=== PATIENT | male | born 1965 | race Caucasian/White ===

== ENCOUNTER 2017-12-15 14:08 | Emergency (ER) | payer OTHER, MEDICAID, SELFPAY ==
[2017-12-15 14:10] VITALS: BP 143/80; PULSE 94; RESP 16; TEMP 36.7; O2SAT 96; BMI 25.1
[2017-12-15 14:26] LABS: Bedside Glucose > 500 mg/dL (70-110)
[2017-12-15 16:28] VITALS: BP 140/77; PULSE 98; RESP 18; O2SAT 97
--- NOTE | 2017-12-15 16:33 | EKG12_ITS ---
Test Reason : WEAKNESS Blood Pressure : / mmHG Vent. Rate : 088 BPM Atrial Rate : 088 BPM P-R Int : 136 ms QRS Dur : 076 ms QT Int : 390 ms P-R-T Axes : 040 -13 025 degrees QTc Int : 471 ms Normal sinus rhythm Nonspecific T wave abnormality Prolonged QT Abnormal ECG Confirmed by MARSHA MORTENSEN, KULWINDER ([id number]), medical transcription editor CYNTHIA FOY ([id number]) on 12/17/2017 2:09:38 PM Referred By: Parish Marinelli Confirmed By:KULWINDER LARSON MD
[2017-12-15] MEDS: 0.9% Normal Saline 1,000 ML 999 ML IV (16:56)
[2017-12-15 17:08] LABS: Absolute Lymphocyte Count 1.56 X10^3/ul (0.83-4.51); Absolute Neutrophil Count 8.8 X10^3/uL (2.0-7.7); Basophil# 0.02 X10^3/uL; Basophil% 0.2 % (0-1); Hematocrit 45.9 % (40-54); Hemoglobin 16.2 g/dl (13.0-16.5); Lymphocyte # 1.56 X10^3/ul (4.0); Lymphocyte % 14.8 % (19-41); Mean Corp Hgb Conc 35.3 g/gl (32-36); Mean Corpuscular Hgb 31.3 pg (27.0-32.0); Mean Corpuscular Volume 88.6 fL (80-94); Mean Platelet Vol. 10.9 fl (6.2-12.0); Monocyte# 0.19 X10^3/uL; Monocyte% 1.8 % (0-10); Neutrophil # 8.78 X10^3/uL (2.7-7.7); Neutrophil % 83.1 % (47-70); Platelet Count 325 K/mm3 (150-450); RBC Distribution Width CV 12.5 % (11.6-14.6); RBC Distribution Width SD 39.8 fl (35.1-43.9); Red Blood Count 5.18 M/mm3 (4.6-6.2); White Blood Count 10.6 K/mm3 (4.4-11.0)
[2017-12-15 17:11] LABS: POSITIVE COUNT NO; POSITIVE DIFFERENTIAL NO; POSITIVE MORPHOLOGY NO
[2017-12-15 17:28] LABS: AST(SGOT) 21 U/L (15-37); Alanine Aminotransfer ALT/SGPT 22 U/L (16-61); Albumin, Serum 4.4 g/dL (3.2-5.0); Alkaline Phosphatase 118 U/L (45-117); Anion Gap 19 (5-15); BUN 37 mg/dL (7-18); Calcium,Total 9.3 mg/dL (8.5-10.1); Chloride 97 mmol/L (98-107); Creatinine, Serum 1.95 mg/dL (0.70-1.30); EST Glomerular Filtration Rate 38 mL/min (>60); Est Glom Filt Rate - Afr Amer 46 mL/min (>60); Estimated Creatinine Clearance 46.66 ml/min; Globulin 4.5 g/dL (2.2-4.2); Glucose 413 mg/dL (74-106); Potassium 4.3 mmol/L (3.5-5.1); Protein, Total 8.9 g/dL (6.4-8.2); Sodium Level 131 mmol/L (136-145)
--- NOTE | 2017-12-15 17:58 | ED.VISSUMM ---
- ER Visit Summary Date of Service: 12/15/17 Chief Complaint: Weakness, nausea vomiting History of Present Illness: The patient is a 51 M who feels weak and has had nausea and vomiting. He has not taken his diabetes medicines due to the nausea and vomiting. He does like he has dry mouth. He feels like his joints feel numb. He denies any pain. He was bit by a bug in the [facility] earlier this week. He did topical medicines for it and the spot went away. Physical Examination: Vital signs reviewed. HEENT exam unremarkable. Heart is regular rate and rhythm without murmurs. Lungs are clear to auscultation. Abdomen is soft and nontender. Extremities reveal no edema. Skin exam normal. Neurologic exam normal. Test Results: Blood glucose 413, sodium 131, creatinine 1.95 Emergency Department Course and Treatment: Patient was hydrated with saline. He was given subcutaneous insulin. He appears and feels better. I doubt this has anything to do with the bug bite. Is likely because his blood sugar has been high. He will check his blood sugars at home and use his home insulin and medications and will follow up with his PCP Treatment Plan: [] Disposition: Discharge Impression: Hyperglycemia This note was generated with [employer] dictation software. It may contain incorrect words, spelling, and punctuation that were not noted in review of the chart prior to signing ED Disposition - Plan for ED Patient: Chief Complaint: Weakness Referrals: Johnathan Wheeler III, MD [Primary Care Provider] -
--- NOTE | 2017-12-15 18:00 | ED.DEP ---
ED Disposition - Plan for ED Patient: Disposition: Home or Assisted Living Chief Complaint: Weakness Instructions: ED Weakness UKO, ED Hyperglycemia Diabetic Referrals: Johnathan Wheeler III, MD [Primary Care Provider] -
[2017-12-15 18:01] VITALS: BP 138/76; PULSE 79; RESP 18; O2SAT 97
== END 2017-12-15 18:30 | disposition home or self-care (01) ==
PROVIDERS: Emergency Provider Emergency Medicine; Family Provider Family Medicine; PCP Family Medicine
DX: E10.65 Type 1 diabetes mellitus with hyperglycemia (principal); Z79.4 Long term (current) use of insulin; Z79.82 Long term (current) use of aspirin; Z79.899 Other long term (current) drug therapy
CPT/HCPCS: 80053; 82962; 85025; 93005; 96360; 96361; 99284; J7030; A4216

== ENCOUNTER 2018-03-01 09:33 | Inpatient (IN) | payer MEDICAID, SELFPAY ==
[2018-03-01] VITALS (21 sets, daily range): BP systolic 111–155; BP diastolic 54–87; PULSE 87–128; RESP 16–28; TEMP 36.6–38.1; O2SAT 96–100; BMI 23.7; BMI 22.4; BMI 22.5
[2018-03-01 09:46] LABS: Bedside Glucose > 500 mg/dL (70-110)
--- NOTE | 2018-03-01 09:47 | ED.VISSUMM ---
- ER Visit Summary Date of Service: 03/01/18 Chief Complaint: Nausea and vomiting History of Present Illness: The patient is a 52 M history of insulin-dependent type 1 diabetes and hypothyroidism. Patient's never had any abdominal surgeries. States he had nausea and vomiting since 11 PM last night. Denies any significant abdominal pain. Denies any diarrhea or constipation. No melena. No dysuria. No fever. States he just cannot stop vomiting. Has been trying to drink enough water but does not think he can keep up and thinks he is dehydrated. Physical Examination: Middle-aged male. Vital signs stable his initial blood pressure is 141/87 his heart rate is 123. Clinically he does look dehydrated. H EENT exam dry mucous membranes. Neck nontender. Lungs clear to auscultation bilaterally. Heart regular rhythm rate about 120s no murmur. Chest wall nontender. Abdomen soft. Nondistended. Normal bowel sounds. No peritoneal signs. No hernias or masses. No signs of obstruction. Both the right upper and right lower quadrants are unremarkable. Patient is moving all 4 extremities. They are neurovascularly intact. Calves are nontender without edema or cords. Neurologically is awake and alert with no focal motor deficits. Test Results: 20,000 white count. Hemoglobin of 15. No bands. Serum ketones are large. Chemistry panel shows a sodium 129. Potassium of 5.9. Anion gap of 31. CO2 is 7. Glucose a 19. BUN of 30 and creatinine 1.76. All consistent with his DKA. Emergency Department Course and Treatment: Patient clinically looks dehydrated from nausea and vomiting. He will be given 2 L normal saline. Screening labs will be obtained. Also be treated with IV Zofran for his nausea. Repeat exam the patient is doing better at 10:50 AM. He is in diabetic ketoacidosis and was started on IV insulin drip weight-based. Given additional Zofran for his nausea. He will eventually need to be admitted. Hospitalist on page for admission. Treatment Plan: IV fluids. Insulin drip. ICU admission. Disposition: Admission Impression: Acute nausea and vomiting Acute diabetic ketoacidosis Acute dehydration History of insulin-dependent diabetes This note was generated with [employer] software. It may contain incorrect words, spelling, and punctuation that were not noted in review of the chart prior to signing ED Disposition - Plan for ED Patient: Chief Complaint: Nausea/Vomiting Referrals: Johnathan Wheeler III, MD [Primary Care Provider] -
[2018-03-01] MEDS: Ondansetron 4 MG/2 ML Vial IV ×3 (09:59→20:42)
[2018-03-01] MEDS: 0.9% Normal Saline 1,000 ML 1000 ML IV ×2 (09:59→10:01)
[2018-03-01 10:28] LABS: Absolute Lymphocyte Count 1.41 X10^3/ul (0.83-4.51); Absolute Neutrophil Count 18.6 X10^3/uL (2.0-7.7); Basophil# 0.03 X10^3/uL; Basophil% 0.1 % (0-1); Hematocrit 48.5 % (40-54); Hemoglobin 15.5 g/dl (13.0-16.5); Lymphocyte # 1.41 X10^3/ul (4.0); Lymphocyte % 6.8 % (19-41); Mean Corpuscular Hgb 30.9 pg (27.0-32.0); Mean Corpuscular Volume 96.8 fL (80-94); Mean Platelet Vol. 10.8 fl (6.2-12.0); Monocyte# 0.57 X10^3/uL; Monocyte% 2.8 % (0-10); Neutrophil # 18.59 X10^3/uL (2.7-7.7); Neutrophil % 90.1 % (47-70); Platelet Count 403 K/mm3 (150-450); RBC Distribution Width CV 12.7 % (11.6-14.6); RBC Distribution Width SD 44.3 fl (35.1-43.9); Red Blood Count 5.01 M/mm3 (4.6-6.2)
[2018-03-01 10:29] LABS: POSITIVE COUNT NO; POSITIVE DIFFERENTIAL NO; POSITIVE MORPHOLOGY NO; White Blood Count 20.7 K/mm3 (4.4-11.0)
[2018-03-01 11:09] LABS: Anion Gap 31 (5-15); BUN 30 mg/dL (7-18); Calcium,Total 9.2 mg/dL (8.5-10.1); Chloride 91 mmol/L (98-107); Creatinine, Serum 1.76 mg/dL (0.70-1.30); EST Glomerular Filtration Rate 43 mL/min (>60); Est Glom Filt Rate - Afr Amer 52 mL/min (>60); Glucose 819 mg/dL (74-106); Potassium 5.9 mmol/L (3.5-5.1); Sodium Level 129 mmol/L (136-145)
--- NOTE | 2018-03-01 11:56 | NURSING ---
Called research dairy farm supervisor for midline placement. States nurse will be at [facility] between 2-3pm.
[2018-03-01 12:20] LABS: Bedside Glucose > 500 mg/dL (70-110)
[2018-03-01 13:29] LABS: Glucose 665 mg/dL (74-106)
--- NOTE | 2018-03-01 13:30 | NURSING ---
Titration based on BMP results. Glucometer unable to give accurate reading at this time.
--- NOTE | 2018-03-01 13:32 | HP.PCM_ITS ---
Problem List (1) Type 1 diabetes mellitus Status: Chronic (2) DKA (diabetic ketoacidoses) Status: Acute (3) Hypothyroidism Status: Chronic History of Present Illness Date of Admission: 03/01/18 Chief Complaint: Nausea, vomiting. The patient is a 52 year old M who presents the emergency room with severe nausea and vomiting which began last night around 11 PM. Patient reports epi sodes of vomiting every half hour. Complains of dry mouth and fatigue. Denies abdominal pain. No diarrhea. Denies exposure to ill persons. Denies fever, chills. Patient states his has stage IV cancer and he has been taking care of her. States he has not been taking care of himself well or checking blood sugars like he is supposed to. Patient states he has an upcoming appointment with endocrinology, FRANCOIS silverman 03/12/18. His past medical history includes type 1 diabetes mellitus, hypothyroidism. Past Medical History Past Medical History (Chronic Problems): Chronic Problems (Last Reviewed 01/15/18 @ 15:27 by Rosemarie Farmer) Type 1 diabetes mellitus (Chronic) Hypothyroidism (Chronic) Medical History: Medical History (Last Reviewed 01/15/18 @ 15:27 by Rosemarie Farmer) Diabetes E11.9 Allergies No Known Allergies Allergy (Verified 03/01/18 09:35) Home Medications: Ambulatory Orders Medication Instructions Recorded Aspirin [Aspirin, Baby] 81 mg PO DAILY@0800 08/22/14 Insulin Glargine [Lantus SoloStar 56 units SC QHS 08/22/14 Pen] Insulin Lispro [Humalog] 0 - 100 unit SQ TID 08/22/14 Levothyroxine [Synthroid] 137 mcg PO DAILY 08/22/14 Surgical History: - - Right lithotripsy secondary to right ureteral calculi with obstruction, leg fracture/repair. Psychiatric History: No pertinent psych hx Lives: Spouse/ Significant Other Smoking Status: Never smoker Tobacco Use: Non-smoker Alcohol: Occasional Drugs: None - *Family History Maternal History Items: No pertinent history Paternal History Items: Heart Disease - [place] Review of Systems Constitutional: Denies: Chills, Fever, Weight Change HEENT: Denies: Head Aches, Sinus Congestion, Sinus Drainage Cardiovascular: Denies: Chest Pain, Palpitations Respiratory: Denies: Cough, Shortness of breath at rest, Sputum production Gastrointestinal: Reports: Nausea, Vomiting. Denies: Abdominal Pain, Diarrhea, Hematemesis Genitourinary: Denies: Dysuria Musculoskeletal: Denies: Joint Pain, Joint Tenderness Skin: Denies: Rash, Wounds Neurological: Denies: Numbness, Tingling, Focal weakness Psychiatric: Denies: Anxiety, Depression, Homicidal Ideations, Suicidal Ideations Hematologic/ Lymphatic: Denies: Easy Bruising, Easy Bleeding VTE Information - Inpt Only VTE Present on Admission: No VTE Mechan Device Prophylaxis: SCD's VTE Pharm Prophylaxis ordered?: No Reason prophylaxis not ordered:: Treatment Not Indicated Patient Problems: Active and Suspected Problems (Last Reviewed 01/15/18 @ 15:27 by Rosemarie Farmer) DKA (diabetic ketoacidoses) (Acute) - Physical Exam General: Alert, Oriented x3, Cooperative HEENT: Atraumatic, PERRLA, EOMI, Normocephalic Oral: Dry Mucosa Neck: Supple, No JVD, Negative Carotid Bruits Lungs: Clear to auscultation, Normal air movement Cardiovascular: Regular Rhythm, Normal S1, Normal S2, No murmurs, Tachycardic Abdomen: Bowel Sounds Present, Soft, Non Tender, Non-Distended Extremities: No clubbing, No cyanosis, No edema, Capillary Refill Less than 3 Seconds Skin: No rashes, No breakdown Musculoskeletal: No Tenderness to Palpation of Joints or Extremities Neurological: Cranial nerves II-XII grossly intact, Neuro grossly intact Psych/Mental Status: Normal Affect, Appropriate Vital Signs Temp Pulse Resp BP Pulse Ox 97.8 F 125 H 25 H 144/80 H 100 03/01/18 13:00 03/01/18 13:15 03/01/18 13:15 03/01/18 13:15 03/01/18 13:15 Oxygen Delivery Method Room Air Weight: 161 lb 2.526 oz Body Mass Index (BMI) 22.4 Laboratory Tests Past 24 Hrs 03/01/18 03/01/18 03/01/18 10:16 10:16 10:16 WBC 20.7 H RBC 5.01 Hgb 15.5 Hct 48.5 MCV 96.8 H MCH 30.9 MCHC 32.0 RDW 12.7 RDW Differential 44.3 H Plt Count 403 MPV 10.8 Immature Gran % (Auto) 0.200 Neut % (Auto) 90.1 H Lymph % (Auto) 6.8 L [place] % (Auto) 2.8 Eos % (Auto) 0.0 Baso % (Auto) 0.1 Absolute Neuts (auto) 18.6 H Absolute Lymphs (auto) 1.41 Total Counted Not Reportable Sodium 129 L Potassium 5.9 H Chloride 91 L Carbon Dioxide 7.0 L* Anion Gap 31 H BUN 30 H Creatinine 1.76 H Estim Creat Clear Calc 51.10 Est GFR (MDRD) Af Amer 52 L Est GFR (MDRD) Non-Af 43 L BUN/Creatinine Ratio 17.0 Glucose 819 H* Hemoglobin A1c Calcium 9.2 Acetone Level LARGE H 03/01/18 03/01/18 03/01/18 10:16 12:36 12:36 WBC RBC Hgb Hct MCV MCH MCHC RDW RDW Differential Plt Count MPV Immature Gran % (Auto) Neut % (Auto) Lymph % (Auto) [place] % (Auto) Eos % (Auto) Baso % (Auto) Absolute Neuts (auto) Absolute Lymphs (auto) Total Counted Sodium Pending Potassium Pending Chloride Pending Carbon Dioxide Pending Anion Gap Pending BUN Pending Creatinine Pending Estim Creat Clear Calc Est GFR (MDRD) Af Amer Pending Est GFR (MDRD) Non-Af Pending BUN/Creatinine Ratio Pending Glucose Pending Pending Hemoglobin A1c Pending Calcium Pending Acetone Level POC Glucose 03/01/18 03/01/18 12:16 09:41 POC Glucose > 500 H* > 500 H* Assessment/Plan All Active Problems (Last Reviewed 01/15/18 @ 15:27 by Rosemarie Farmer) DKA (diabetic ketoacidoses) (Acute) Bronchitis (Acute) 1. DKA in the context of type 1 diabetes [id number] and insulin drip per protocol. Blood glucose 819 on admission. Anion gap 31. N.p.o. Check hemoglobin A1c. Serial BMP. IV fluids per protocol. Patient has upcoming appointment to establish with FRANCOIS silverman 03/09/18. 2. Suspected acute gastroenteritis, nausea/vomiting-aggressive IV fluids. Trend BMP. Zofran as needed for nausea. 3. Acute kidney injury secondary to dehydration as a result of #2-IV fluids, trend BMP. 4. Electrolyte disturbance, secondary to #1-patient with hyponatremia/hyperkalemia on admission. Treatment per above. Trend BMP. 5. Hypothyroidism-continue Synthroid regimen. Check TSH. DVT prophylaxis-SCDs. This patient was seen by IRAIS Cam under the supervision of Dr. Nur.
[2018-03-01 13:41] LABS: Anion Gap 29 (5-15); BUN 29 mg/dL (7-18); Calcium,Total 8.7 mg/dL (8.5-10.1); Chloride 98 mmol/L (98-107); Creatinine, Serum 1.53 mg/dL (0.70-1.30); EST Glomerular Filtration Rate 51 mL/min (>60); Est Glom Filt Rate - Afr Amer 61 mL/min (>60); Estimated Creatinine Clearance 57.07 ml/min; Glucose 716 mg/dL (74-106); Potassium 5.3 mmol/L (3.5-5.1); Sodium Level 133 mmol/L (136-145)
[2018-03-01 14:05] LABS: Hemoglobin A1c 10.7 % (4.2-6.3)
[2018-03-01 14:36] LABS: Bedside Glucose > 500 mg/dL (70-110)
[2018-03-01 14:53] LABS: Bacteria 0 SEEN /hpf (None Seen); Mucous, Urine 0 SEEN /hpf (<or=2+); Red Blood Cells-Urine 0 SEEN /hpf (0-5); Squamous Epithelial Cells - UA 0 SEEN /hpf (0-5); White Blood Cells 0 SEEN /hpf (0-5)
[2018-03-01 14:55] LABS: Color, Urine Yellow (Yellow); Glucose, Dipstick 1000 mg/dl (Normal); Ketone-Dipstick 150 mg/dl (Negative); Leukocyte Esterase-Dipstick Negative /ul (Negative); Nitrite-Dipstick Negative (Negative); Occult Blood-Urine 50 /ul (Negative); Protein-Dipstick 30 mg/dl (Negative); Specific Gravity, Urine 1.025 (1.002-1.030); Urine Bilirubin Dipstick Negative (Negative); Urine Clarity Clear (Clear); Urine Urobilinogen Normal (Normal)
[2018-03-01 15:17] LABS: Thyroid Stim Hormone (TSH) 1.43 uIU/mL (0.358-3.74)
[2018-03-01 15:36] LABS: Bedside Glucose 448 mg/dL (70-110)
[2018-03-01 16:36] LABS: Bedside Glucose 439 mg/dL (70-110)
[2018-03-01 17:37] LABS: Anion Gap 22 (5-15); BUN 28 mg/dL (7-18); BUN/Creat Ratio 18.7 RATIO (10-20); Chloride 102 mmol/L (98-107); EST Glomerular Filtration Rate 52 mL/min (>60); Est Glom Filt Rate - Afr Amer 63 mL/min (>60); Estimated Creatinine Clearance 58.21 ml/min; Glucose 372 mg/dL (74-106); Potassium 4.7 mmol/L (3.5-5.1); Sodium Level 134 mmol/L (136-145)
[2018-03-01] MEDS: Levothyroxine 137 MCG Tablet PO (17:37)
[2018-03-01 17:51] LABS: Bedside Glucose 377 mg/dL (70-110)
[2018-03-01] MEDS: 0.9% Normal Saline 1,000 ML 150 ML IV (18:17)
[2018-03-01 18:41] LABS: Bedside Glucose 329 mg/dL (70-110)
[2018-03-01 19:51] LABS: Bedside Glucose 286 mg/dL (70-110)
[2018-03-01] MEDS: 0.9% NaCl Peripheral Flush Adult/Peds IV (20:51)
[2018-03-01 20:56] LABS: Bedside Glucose 290 mg/dL (70-110)
[2018-03-01 21:14] LABS: Anion Gap 13 (5-15); BUN 20 mg/dL (7-18); BUN/Creat Ratio 15.4 RATIO (10-20); Calcium,Total 7.5 mg/dL (8.5-10.1); Chloride 108 mmol/L (98-107); EST Glomerular Filtration Rate 61 mL/min (>60); Est Glom Filt Rate - Afr Amer 74 mL/min (>60); Estimated Creatinine Clearance 67.16 ml/min; Glucose 268 mg/dL (74-106); Potassium 4.4 mmol/L (3.5-5.1); Sodium Level 137 mmol/L (136-145)
[2018-03-01] MEDS: Dext 5%-0.45% NS 1,000 ML 150 ML IV (21:50)
[2018-03-01 21:51] LABS: Bedside Glucose 241 mg/dL (70-110)
[2018-03-01 22:51] LABS: Bedside Glucose 248 mg/dL (70-110)
[2018-03-01 23:56] LABS: Bedside Glucose 226 mg/dL (70-110)
[2018-03-02] VITALS (15 sets, daily range): BP systolic 102–129; BP diastolic 60–81; PULSE 74–88; RESP 14–21; TEMP 36.6–37.4; O2SAT 96–100
[2018-03-02 01:01] LABS: Bedside Glucose 219 mg/dL (70-110)
[2018-03-02 01:19] LABS: Anion Gap 8 (5-15); BUN 17 mg/dL (7-18); BUN/Creat Ratio 14.5 RATIO (10-20); Calcium,Total 7.3 mg/dL (8.5-10.1); Chloride 110 mmol/L (98-107); Creatinine, Serum 1.17 mg/dL (0.70-1.30); EST Glomerular Filtration Rate 69 mL/min (>60); Est Glom Filt Rate - Afr Amer 84 mL/min (>60); Estimated Creatinine Clearance 74.63 ml/min; Glucose 209 mg/dL (74-106); Potassium 3.7 mmol/L (3.5-5.1); Sodium Level 138 mmol/L (136-145)
[2018-03-02] MEDS: 0.9% NaCl Peripheral Flush Adult/Peds IV ×2 (01:39→05:15)
[2018-03-02 03:46] LABS: Bedside Glucose 197 mg/dL (70-110)
[2018-03-02] MEDS: Levothyroxine 137 MCG Tablet PO (05:15)
[2018-03-02 05:59] LABS: Anion Gap 10 (5-15); BUN 15 mg/dL (7-18); BUN/Creat Ratio 14.2 RATIO (10-20); Calcium,Total 7.6 mg/dL (8.5-10.1); Chloride 109 mmol/L (98-107); Creatinine, Serum 1.06 mg/dL (0.70-1.30); EST Glomerular Filtration Rate 77 mL/min (>60); Est Glom Filt Rate - Afr Amer 94 mL/min (>60); Estimated Creatinine Clearance 84.85 ml/min; Glucose 190 mg/dL (74-106); Magnesium 2.1 mg/dL (1.6-2.6); Phosphorus 1.2 mg/dL (2.5-4.9); Potassium 3.6 mmol/L (3.5-5.1); Sodium Level 140 mmol/L (136-145)
[2018-03-02 06:20] LABS: Hematocrit 34.8 % (40-54); Mean Corp Hgb Conc 34.5 g/gl (32-36); Mean Corpuscular Volume 89.9 fL (80-94); Mean Platelet Vol. 10.1 fl (6.2-12.0); Platelet Count 266 K/mm3 (150-450); RBC Distribution Width SD 39.3 fl (35.1-43.9); Red Blood Count 3.87 M/mm3 (4.6-6.2); White Blood Count 11.6 K/mm3 (4.4-11.0)
[2018-03-02 07:01] LABS: Bedside Glucose 187 mg/dL (70-110)
[2018-03-02 07:02] LABS: Scan Indicated on CBC? Y/N NO
[2018-03-02] MEDS: Aspirin 81 MG TAB.CHEW PO (08:41)
[2018-03-02] MEDS: Insulin Lispro 100 UNIT/ML INSULN.PEN SC ×4 (08:43→21:49)
--- NOTE | 2018-03-02 09:01 | PCM.PN.HOSP ---
Patient Problems: Active and Suspected Problems (Last Reviewed 01/15/18 @ 15:27 by Rosemarie Farmer) DKA (diabetic ketoacidoses) (Acute) Subjective: Feeling better but still tired/groggy. No pain, tolerating a diet Vitals/I&O's: Vital Signs Temp Pulse Resp BP Pulse Ox 98.3 F 84 19 H 102/66 98 03/02/18 08:00 03/02/18 08:00 03/02/18 08:00 03/02/18 08:00 03/02/18 08:00 Oxygen Delivery Method Room Air Weight: 166 lb 10.711 oz Body Mass Index (BMI) 22.4 Finger Stick Blood Glucose 665 Intake and Output for Last 24 Hours 02/28/18 03/01/18 03/02/18 23:59 23:59 23:59 Intake Total 2497.3 / 2497.3 799.9 / 799.9 Output Total 1200 / 1200 400 / 400 Balance 1297.3 / 1297.3 399.9 / 399.9 General: Alert, Oriented x3, Cooperative, No apparent distress HEENT: Atraumatic, EOMI, Normocephalic Oral: Moist Mucosa Neck: Supple, No JVD Lungs: Clear to auscultation, Normal air movement, No rhonchi, No wheeze, No rales Cardiovascular: Regular rate, Regular Rhythm, Normal S1, Normal S2, No murmurs Abdomen: Soft, Non Tender, Non-Distended, No Hepato-splenomegaly Extremities: No edema, Capillary Refill Less than 3 Seconds Skin: No rashes, No breakdown Laboratory Results 03/01/18 09:41: POC Glucose > 500 H* 03/01/18 10:16: WBC 20.7 H, RBC 5.01, Hgb 15.5, Hct 48.5, MCV 96.8 H, MCH 30.9, MCHC 32.0, RDW 12.7, RDW Differential 44.3 H, Plt Count 403, MPV 10.8, Immature Gran % (Auto) 0.200, Neut % (Auto) 90.1 H, Lymph % (Auto) 6.8 L, [place] % (Auto) 2.8, Eos % (Auto) 0.0, Baso % (Auto) 0.1, Absolute Neuts (auto) 18.6 H, Absolute Lymphs (auto) 1.41, Total Counted Not Reportable 03/01/18 10:16: Sodium 129 L, Potassium 5.9 H, Chloride 91 L, Carbon Dioxide 7.0 L*, Anion Gap 31 H, BUN 30 H, Creatinine 1.76 H, Estim Creat Clear Calc 51.10, Est GFR (MDRD) Af Amer 52 L, Est GFR (MDRD) Non-Af 43 L, BUN/Creatinine Ratio 17.0, Glucose 819 H*, Calcium 9.2 03/01/18 10:16: Acetone Level LARGE H 03/01/18 10:16: Hemoglobin A1c 10.7 H 03/01/18 10:16: TSH 1.43 03/01/18 12:16: POC Glucose > 500 H* 03/01/18 12:36: Glucose 665 H* 03/01/18 12:36: Sodium 133 L, Potassium 5.3 H, Chloride 98, Carbon Dioxide 6.0 L*, Anion Gap 29 H, BUN 29 H, Creatinine 1.53 H, Estim Creat Clear Calc 57.07, Est GFR (MDRD) Af Amer 61, Est GFR (MDRD) Non-Af 51 L, BUN/Creatinine Ratio 19.0, Glucose 716 H*, Calcium 8.7 03/01/18 14:25: POC Glucose > 500 H* 03/01/18 14:45: Urine Color Yellow, Urine Clarity Clear, Urine pH 5.0, Ur Specific [place] 1.025, Urine Protein 30 H, Urine Glucose (UA) 1000 H, Urine Ketones 150 H, Urine Occult Blood 50 H, Urine Nitrite Negative, Urine Bilirubin Negative, Urine Urobilinogen Normal, Ur Leukocyte Esterase Negative, Urine RBC 0 SEEN, Urine WBC 0 SEEN, Ur Squamous Epith Cells 0 SEEN, Urine Bacteria 0 SEEN, Urine Mucus 0 SEEN 03/01/18 15:26: POC Glucose 448 H 03/01/18 16:27: POC Glucose 439 H 03/01/18 16:55: Sodium 134 L, Potassium 4.7, Chloride 102, Carbon Dioxide 10.0 L, Anion Gap 22 H, BUN 28 H, Creatinine 1.50 H, Estim Creat Clear Calc 58.21, Est GFR (MDRD) Af Amer 63, Est GFR (MDRD) Non-Af 52 L, BUN/Creatinine Ratio 18.7, Glucose 372 H, Calcium 8.0 L 03/01/18 17:34: POC Glucose 377 H 03/01/18 18:33: POC Glucose 329 H 03/01/18 19:39: POC Glucose 286 H 03/01/18 20:44: POC Glucose 290 H 03/01/18 20:45: Sodium 137, Potassium 4.4, Chloride 108 H, Carbon Dioxide 16.0 L, Anion Gap 13, BUN 20 H, Creatinine 1.30, Estim Creat Clear Calc 67.16, Est GFR (MDRD) Af Amer 74, Est GFR (MDRD) Non-Af 61, BUN/Creatinine Ratio 15.4, Glucose 268 H, Calcium 7.5 L 03/01/18 21:43: POC Glucose 241 H 03/01/18 22:46: POC Glucose 248 H 03/01/18 23:49: POC Glucose 226 H 03/02/18 00:48: POC Glucose 219 H 03/02/18 00:52: Sodium 138, Potassium 3.7, Chloride 110 H, Carbon Dioxide 20.0 L, Anion Gap 8, BUN 17, Creatinine 1.17, Estim Creat Clear Calc 74.63, Est GFR (MDRD) Af Amer 84, Est GFR (MDRD) Non-Af 69, BUN/Creatinine Ratio 14.5, Glucose 209 H, Calcium 7.3 L 03/02/18 03:39: POC Glucose 197 H 03/02/18 05:15: WBC 11.6 H, RBC 3.87 L, Hgb 12.0 L, Hct 34.8 L, MCV 89.9, MCH 31.0, MCHC 34.5, RDW 12.0, RDW Differential 39.3, Plt Count 266, MPV 10.1 03/02/18 05:15: Sodium 140, Potassium 3.6, Chloride 109 H, Carbon Dioxide 21.0, Anion Gap 10, BUN 15, Creatinine 1.06, Estim Creat Clear Calc 84.85, Est GFR (MDRD) Af Amer 94, Est GFR (MDRD) Non-Af 77, BUN/Creatinine Ratio 14.2, Glucose 190 H, Calcium 7.6 L, Phosphorus 1.2 L, Magnesium 2.1 03/02/18 06:52: POC Glucose 187 H Current Medications Aspirin (Aspirin, Baby) 81 mg PO DAILY@0800 [facility] Last Admin: 03/02/18 08:41 Dose: 81 mg Dextrose (D50w Syringe) 0 gm IV X1 PRN; Protocol PRN Reason: HYPOGLYCEMIA Potassium Phosphate 40 mm/ (Sodium Chloride) 513.3333 mls @ 62.5 mls/hr IV X1 ONE Stop: 03/02/18 16:42 Insulin Glargine (Lantus (Bkc)) 56 units SC QHS [facility] Last Admin: 03/02/18 01:38 Dose: 56 units Insulin Human Lispro (Humalog Kwikpen (Bkc)) 0 unit SC ACHS [facility]; Protocol Last Admin: 03/02/18 08:43 Dose: 2 u Levothyroxine Sodium (Synthroid) 137 mcg PO DAILY@0600 [facility] Last Admin: 03/02/18 05:15 Dose: 137 mcg Nutritional Formula (Lactose Free) (Glucerna Shake) 120 ml PO 4X/DAY [facility] Ondansetron HCl (Zofran) 4 mg IV Q4H PRN PRN PRN Reason: NAUSEA/VOMITING Last Admin: 03/01/18 20:42 Dose: 4 mg Sodium Chloride () 5 - 30 ml IV UD PRN PRN Reason: SALINE FLUSH Last Admin: 03/02/18 05:15 Dose: 20 ml Medical Necessity - Tobacco Use Smoking Status: Never smoker Tobacco Use: Non-smoker Assessment/Plan All Active Problems (Last Reviewed 01/15/18 @ 15:27 by Rosemarie Farmer) DKA (diabetic ketoacidoses) (Acute) Bronchitis (Acute) 1. DKA 2/2 type 1 DM and viral gastro - Resolved - Will transfer to med surg to continue to monitor and make adjustments to his insulin regimen - He might be better served with an increase to his long acting and then scheduled mealtime - Meet with the dietitian for counseling - Has an appointment with endocrinology here on 03/09 2. JAROCHO - resolved 3. Hypophosphatemia - 1.2 today, will replace 4. Hypothyroid - stable - c/w home dosing of synthroid DVT: SCD Diet: DM Code Visit Inpatient E&M: 20018 Subs Hosp L2
--- NOTE | 2018-03-02 09:07 | PN_ITS ---
Patient Problems: Active and Suspected Problems (Last Reviewed 01/15/18 @ 15:27 by Rosemarie Farmer) DKA (diabetic ketoacidoses) (Acute) Subjective: Feeling better but still tired/groggy. No pain, tolerating a diet Vitals/I&O's: Vital Signs Temp Pulse Resp BP Pulse Ox 98.3 F 84 19 H 102/66 98 03/02/18 08:00 03/02/18 08:00 03/02/18 08:00 03/02/18 08:00 03/02/18 08:00 Oxygen Delivery Method Room Air Weight: 166 lb 10.711 oz Body Mass Index (BMI) 22.4 Finger Stick Blood Glucose 665 Intake and Output for Last 24 Hours 02/28/18 03/01/18 03/02/18 23:59 23:59 23:59 Intake Total 2497.3 / 2497.3 799.9 / 799.9 Output Total 1200 / 1200 400 / 400 Balance 1297.3 / 1297.3 399.9 / 399.9 General: Alert, Oriented x3, Cooperative, No apparent distress HEENT: Atraumatic, EOMI, Normocephalic Oral: Moist Mucosa Neck: Supple, No JVD Lungs: Clear to auscultation, Normal air movement, No rhonchi, No wheeze, No rales Cardiovascular: Regular rate, Regular Rhythm, Normal S1, Normal S2, No murmurs Abdomen: Soft, Non Tender, Non-Distended, No Hepato-splenomegaly Extremities: No edema, Capillary Refill Less than 3 Seconds Skin: No rashes, No breakdown Laboratory Results 03/01/18 09:41: POC Glucose > 500 H* 03/01/18 10:16: WBC 20.7 H, RBC 5.01, Hgb 15.5, Hct 48.5, MCV 96.8 H, MCH 30.9, MCHC 32.0, RDW 12.7, RDW Differential 44.3 H, Plt Count 403, MPV 10.8, Immature Gran % (Auto) 0.200, Neut % (Auto) 90.1 H, Lymph % (Auto) 6.8 L, [place] % (Auto) 2.8, Eos % (Auto) 0.0, Baso % (Auto) 0.1, Absolute Neuts (auto) 18.6 H, Absolute Lymphs (auto) 1.41, Total Counted Not Reportable 03/01/18 10:16: Sodium 129 L, Potassium 5.9 H, Chloride 91 L, Carbon Dioxide 7.0 L*, Anion Gap 31 H, BUN 30 H, Creatinine 1.76 H, Estim Creat Clear Calc 51.10, Est GFR (MDRD) Af Amer 52 L, Est GFR (MDRD) Non-Af 43 L, BUN/Creatinine Ratio 17.0, Glucose 819 H*, Calcium 9.2 03/01/18 10:16: Acetone Level LARGE H 03/01/18 10:16: Hemoglobin A1c 10.7 H 03/01/18 10:16: TSH 1.43 03/01/18 12:16: POC Glucose > 500 H* 03/01/18 12:36: Glucose 665 H* 03/01/18 12:36: Sodium 133 L, Potassium 5.3 H, Chloride 98, Carbon Dioxide 6.0 L*, Anion Gap 29 H, BUN 29 H, Creatinine 1.53 H, Estim Creat Clear Calc 57.07, Est GFR (MDRD) Af Amer 61, Est GFR (MDRD) Non-Af 51 L, BUN/Creatinine Ratio 19.0, Glucose 716 H*, Calcium 8.7 03/01/18 14:25: POC Glucose > 500 H* 03/01/18 14:45: Urine Color Yellow, Urine Clarity Clear, Urine pH 5.0, Ur Specific [place] 1.025, Urine Protein 30 H, Urine Glucose (UA) 1000 H, Urine Ketones 150 H, Urine Occult Blood 50 H, Urine Nitrite Negative, Urine Bilirubin Negative, Urine Urobilinogen Normal, Ur Leukocyte Esterase Negative, Urine RBC 0 SEEN, Urine WBC 0 SEEN, Ur Squamous Epith Cells 0 SEEN, Urine Bacteria 0 SEEN, Urine Mucus 0 SEEN 03/01/18 15:26: POC Glucose 448 H 03/01/18 16:27: POC Glucose 439 H 03/01/18 16:55: Sodium 134 L, Potassium 4.7, Chloride 102, Carbon Dioxide 10.0 L , Anion Gap 22 H, BUN 28 H, Creatinine 1.50 H, Estim Creat Clear Calc 58.21, Est GFR (MDRD) Af Amer 63, Est GFR (MDRD) Non-Af 52 L, BUN/Creatinine Ratio 18.7, Glucose 372 H, Calcium 8.0 L 03/01/18 17:34: POC Glucose 377 H 03/01/18 18:33: POC Glucose 329 H 03/01/18 19:39: POC Glucose 286 H 03/01/18 20:44: POC Glucose 290 H 03/01/18 20:45: Sodium 137, Potassium 4.4, Chloride 108 H, Carbon Dioxide 16.0 L , Anion Gap 13, BUN 20 H, Creatinine 1.30, Estim Creat Clear Calc 67.16, Est GFR (MDRD) Af Amer 74, Est GFR (MDRD) Non-Af 61, BUN/Creatinine Ratio 15.4, Glucose 268 H, Calcium 7.5 L 03/01/18 21:43: POC Glucose 241 H 03/01/18 22:46: POC Glucose 248 H 03/01/18 23:49: POC Glucose 226 H 03/02/18 00:48: POC Glucose 219 H 03/02/18 00:52: Sodium 138, Potassium 3.7, Chloride 110 H, Carbon Dioxide 20.0 L , Anion Gap 8, BUN 17, Creatinine 1.17, Estim Creat Clear Calc 74.63, Est GFR (MDRD) Af Amer 84, Est GFR (MDRD) Non-Af 69, BUN/Creatinine Ratio 14.5, Glucose 209 H, Calcium 7.3 L 03/02/18 03:39: POC Glucose 197 H 03/02/18 05:15: WBC 11.6 H, RBC 3.87 L, Hgb 12.0 L, Hct 34.8 L, MCV 89.9, MCH 31.0, MCHC 34.5, RDW 12.0, RDW Differential 39.3, Plt Count 266, MPV 10.1 03/02/18 05:15: Sodium 140, Potassium 3.6, Chloride 109 H, Carbon Dioxide 21.0, Anion Gap 10, BUN 15, Creatinine 1.06, Estim Creat Clear Calc 84.85, Est GFR (MDRD) Af Amer 94, Est GFR (MDRD) Non-Af 77, BUN/Creatinine Ratio 14.2, Glucose 190 H, Calcium 7.6 L, Phosphorus 1.2 L, Magnesium 2.1 03/02/18 06:52: POC Glucose 187 H Current Medications Aspirin (Aspirin, Baby) 81 mg PO DAILY@0800 [facility] Last Admin: 03/02/18 08:41 Dose: 81 mg Dextrose (D50w Syringe) 0 gm IV X1 PRN; Protocol PRN Reason: HYPOGLYCEMIA Potassium Phosphate 40 mm/ (Sodium Chloride) 513.3333 mls @ 62.5 mls/hr IV X1 ONE Stop: 03/02/18 16:42 Insulin Glargine (Lantus (Bkc)) 56 units SC QHS [facility] Last Admin: 03/02/18 01:38 Dose: 56 units Insulin Human Lispro (Humalog Kwikpen (Bkc)) 0 unit SC ACHS [facility]; Protocol Last Admin: 03/02/18 08:43 Dose: 2 u Levothyroxine Sodium (Synthroid) 137 mcg PO DAILY@0600 [facility] Last Admin: 03/02/18 05:15 Dose: 137 mcg Nutritional Formula (Lactose Free) (Glucerna Shake) 120 ml PO 4X/DAY [facility] Ondansetron HCl (Zofran) 4 mg IV Q4H PRN PRN PRN Reason: NAUSEA/VOMITING Last Admin: 03/01/18 20:42 Dose: 4 mg Sodium Chloride () 5 - 30 ml IV UD PRN PRN Reason: SALINE FLUSH Last Admin: 03/02/18 05:15 Dose: 20 ml Medical Necessity - Tobacco Use Smoking Status: Never smoker Tobacco Use: Non-smoker Assessment/Plan All Active Problems (Last Reviewed 01/15/18 @ 15:27 by Rosemarie Farmer) DKA (diabetic ketoacidoses) (Acute) Bronchitis (Acute) 1. DKA 2/2 type 1 DM and viral gastro - Resolved - Will transfer to med surg to continue to monitor and make adjustments to his insulin regimen - He might be better served with an increase to his long acting and then scheduled mealtime - Meet with the dietitian for counseling - Has an appointment with endocrinology here on 03/09 2. JAROCHO - resolved 3. Hypophosphatemia - 1.2 today, will replace 4. Hypothyroid - stable - c/w home dosing of synthroid DVT: SCD Diet: DM Code Visit Inpatient E&M: 21733 Subs Hosp L2
[2018-03-02] MEDS: Glucerna Shake 120 ML LIQUID PO ×3 (09:32→21:48)
--- NOTE | 2018-03-02 10:04 | CASEMGMT ---
RN CM Complete. See Link DC PLAN: HOME Intro role of CM to patient and his . Pt states he recently applied with [employer] [facility] ([facility]) and needed to find new Rv Mechanic. He has made appt with KHURRAM Gonzáles @ [facility] for next week. He states he has supplies, but scripts are costly. Recommend pt get new script for insulin supplies: blood glucose monitor, lancets, strips on dc to be taken to his pharmacy and can be billed under his [employer]. -Per [employer] prescription coverage list, Preferred Insulin list is on front of chart. -Basaglar kwikpen and FIASP Flextouch and Humalog, Novolin insulins are preferred. (Lantus, levemir require prior authorizations and are not preferred).
[2018-03-02 11:56] LABS: Bedside Glucose 332 mg/dL (70-110)
[2018-03-02 17:35] LABS: Bedside Glucose 304 mg/dL (70-110)
[2018-03-02 22:25] LABS: Bedside Glucose 209 mg/dL (70-110)
[2018-03-03 02:52] VITALS: BP 114/72; PULSE 69; RESP 16; TEMP 36.9; O2SAT 97
[2018-03-03 05:30] LABS: Absolute Lymphocyte Count 0.86 X10^3/ul (0.83-4.51); Absolute Neutrophil Count 3.3 X10^3/uL (2.0-7.7); Basophil# 0.02 X10^3/uL; Basophil% 0.4 % (0-1); Eosinophil# 0.04 X10^3/uL; Eosinophils% 0.9 % (0-5); Hematocrit 33.6 % (40-54); Hemoglobin 11.5 g/dl (13.0-16.5); Lymphocyte # 0.86 X10^3/ul (4.0); Lymphocyte % 18.6 % (19-41); Mean Corp Hgb Conc 34.2 g/gl (32-36); Mean Corpuscular Volume 90.6 fL (80-94); Mean Platelet Vol. 9.7 fl (6.2-12.0); Monocyte# 0.42 X10^3/uL; Monocyte% 9.1 % (0-10); Neutrophil # 3.27 X10^3/uL (2.7-7.7); Neutrophil % 70.8 % (47-70); Platelet Count 197 K/mm3 (150-450); RBC Distribution Width CV 12.2 % (11.6-14.6); RBC Distribution Width SD 39.3 fl (35.1-43.9); Red Blood Count 3.71 M/mm3 (4.6-6.2); White Blood Count 4.6 K/mm3 (4.4-11.0)
[2018-03-03 05:35] LABS: POSITIVE COUNT NO; POSITIVE DIFFERENTIAL NO; POSITIVE MORPHOLOGY NO
[2018-03-03 05:51] LABS: Anion Gap 10 (5-15); BUN 9 mg/dL (7-18); BUN/Creat Ratio 12.4 RATIO (10-20); Calcium,Total 7.8 mg/dL (8.5-10.1); Chloride 108 mmol/L (98-107); Creatinine, Serum 0.73 mg/dL (0.70-1.30); EST Glomerular Filtration Rate 120 mL/min (>60); Est Glom Filt Rate - Afr Amer 145 mL/min (>60); Estimated Creatinine Clearance 123.21 ml/min; Glucose 249 mg/dL (74-106); Potassium 3.3 mmol/L (3.5-5.1); Sodium Level 144 mmol/L (136-145)
[2018-03-03] MEDS: Levothyroxine 137 MCG Tablet PO (06:50)
[2018-03-03] MEDS: Insulin Lispro 100 UNIT/ML INSULN.PEN SC (06:50)
[2018-03-03] MEDS: 0.9% NaCl Peripheral Flush Adult/Peds IV (06:50)
[2018-03-03 07:01] LABS: Bedside Glucose 274 mg/dL (70-110)
[2018-03-03 07:44] LABS: Magnesium 2.2 mg/dL (1.6-2.6); Phosphorus 1.8 mg/dL (2.5-4.9)
--- NOTE | 2018-03-03 08:05 | DCINST_ITS ---
- Discharge Diagnoses Current Active Problems: Current Active and Chronic Problems (Last Reviewed 01/15/18 @ 15:27 by Rosemarie Farmer) Type 1 diabetes mellitus (Chronic) DKA (diabetic ketoacidoses) (Acute) Hypothyroidism (Chronic) You will use the following diet at home:: Calorie/Carbohydrate Controlled (specify 1200, 1400, etc) Your food should be the consistency of: Regular Your liquids should be the consistency of: Regular/Thin Discharge Activity: Return to Normal Activity Call your doctor if you observe: Fever of 101 or Higher, Dizziness Allergies/Adverse Reactions: Allergies No Known Allergies Allergy (Verified 03/01/18 09:35) Medications to take at Discharge Aspirin [Aspirin, Baby] 81 mg PO DAILY@0800 08/22/14 Insulin Lispro [Humalog] 0 - 100 unit SQ TID 08/22/14 Levothyroxine [Synthroid] 137 mcg PO DAILY 08/22/14 Insulin Glargine [Lantus SoloStar Pen] 44 units SC BID #0 03/03/18 Primary Care Physician: Johnathan Wheeler III, MD [Primary Care Provider] - Please follow up with your Primary Care Physician in: in 3-5 days Test Results: Test results from this visit will be discussed in further detail at your follow- up appointment, if applicable. Please Follow Up With: Endocrinology When: 1 week
--- NOTE | 2018-03-03 08:25 | DS.PCM_ITS ---
Discharge Date and Diagnosis - Problem List Patient Problems: Active and Suspected Problems (Last Reviewed 01/15/18 @ 15:27 by Rosemarie Farmer) DKA (diabetic ketoacidoses) (Acute) Date of Admission: 03/01/18 Date of Discharge: 03/03/18 - Primary Discharge Diagnosis Active and Suspected Problems (Last Reviewed 01/15/18 @ 15:27 by Rosemarie Farmer) DKA (diabetic ketoacidoses) (Acute) - Secondary Discharge Diagnosis Chronic Problems (Last Reviewed 01/15/18 @ 15:27 by Rosemarie Farmer) Type 1 diabetes mellitus (Chronic) Hypothyroidism (Chronic) Hospital Course and Treatment Imaging Results: None Consults: None Operations: None Procedures: None Summary of Care Provided: HPI: The patient is a 52 year old M who presents the emergency room with severe nausea and vomiting which began last night around 11 PM. Patient reports episodes of vomiting every half hour. Complains of dry mouth and fatigue. Denies abdominal pain. No diarrhea. Denies exposure to ill persons. Denies fever, chills. Patient states his has stage IV cancer and he has been taking care of her. States he has not been taking care of himself well or checking blood sugars like he is supposed to. Patient states he has an upcoming appointment with endocrinology, FRANCOIS silverman 03/12/18. His past medical history includes type 1 diabetes mellitus, hypothyroidism. Vital Signs - 24 hr Temp Pulse Resp BP Pulse Ox 03/03/18 02:52 98.4 F 69 16 114/72 97 03/02/18 19:46 98.6 F 88 18 121/81 H 97 03/02/18 15:00 97.8 F 85 16 126/65 H 100 03/02/18 10:49 98.6 F 76 14 110/67 98 03/02/18 09:34 98.3 F 87 19 H 118/72 99 General: Alert, Oriented x3, Cooperative, No apparent distress HEENT: Atraumatic, PERRLA, EOMI, Normocephalic Oral: Moist Mucosa Neck: Supple, No JVD Lungs: Clear to auscultation, Normal air movement, No rhonchi, No wheeze, No rales Cardiovascular: Regular rate, Regular Rhythm, Normal S1, Normal S2, No murmurs Abdomen: Soft, Non Tender, Non-Distended, No Hepato-splenomegaly Extremities: No edema, Capillary Refill Less than 3 Seconds Skin: No rashes, No breakdown Psych/Mental Status: Normal Affect, Appropriate Hospital Course: 1. Type 1 DM in DKA/JAROCHO - When he presented he was extremely acidotic and with an elevated WBC and hyponatremic. He was admitted to the ICU and started on insulin and fluid bolus and he responded very well, very quickly. By the day after admission his gap had closed and his acidosis and renal failure resolved. He was transferred to the floor and his phosphorus was replaced. He also states that he was feeling fatigued but after the initial replacement of his phos, he felt much better by the day of discharge. He also says that his deposition reporter increase his lantus to 88 U qHS, however he was only getting 56 U in the hospital. Given that he was getting such a large dose at one time, he was discharged on 44U BID to improve the absorption of his insulin. He is to keep his endo appointment on 03/12 and he is to f/u with his PCP. On the day of discharge his phosphorus was still low as well as his potassium, however he wanted to make an appointment with his who has cancer, so he was given 2 packets of Neutra-phos at breakfast and he is to take 2 more at lunch and dinner. 2. His other medications were continued where appropriate Discharge Activity: Return to Normal Activity Call your doctor if you observe: Fever of 101 or Higher, Dizziness Home Medications: Medications to take at Discharge Aspirin [Aspirin, Baby] 81 mg PO DAILY@0800 08/22/14 Insulin Lispro [Humalog] 0 - 100 unit SQ TID 08/22/14 Levothyroxine [Synthroid] 137 mcg PO DAILY 08/22/14 Insulin Glargine [Lantus SoloStar Pen] 44 units SC BID #0 03/03/18 Primary Care Physician: Johnathan Wheeler III, MD [Primary Care Provider] - Please follow up with your Primary Care Physician in: in 3-5 days Please Follow Up With: Endocrinology When: 1 week Medical Necessity - Tobacco Use Smoking Status: Never smoker Tobacco Use: Non-smoker Meaningful Use Info Meaningful Use Diagnoses (Choose all that apply): None applicable Code Visit Inpatient E&M: 79942 Disch Hosp
[2018-03-03 09:31] VITALS: BP 125/71; PULSE 78; RESP 18; TEMP 36.8; O2SAT 96
[2018-03-03] MEDS: Na Biphos/Potassium Phosphate PACKET 2 PACKET PO (09:34)
[2018-03-03] MEDS: Aspirin 81 MG TAB.CHEW PO (09:35)
--- NOTE | 2018-03-04 12:06 | CASEMGMT ---
Follow-up call placed to patient. No answer. Voicemail left with return contact information. Will reattempt as time allows.
== END 2018-03-03 09:43 | disposition home or self-care (01) | DRG 294 ==
LOC: ED 11:06 → ICU 11:39 → MS2 03-02 10:27
PROVIDERS: Family Medicine; Nurse Practitioner Family; Admitting Provider Internal Medicine; Emergency Provider Emergency Medicine; Family Provider Family Medicine; PCP Family Medicine; Visit Provider Family Medicine
DX: E10.10 Type 1 diabetes mellitus with ketoacidosis without coma (principal); N17.9 Acute kidney failure, unspecified; E87.1 Hypo-osmolality and hyponatremia; E86.0 Dehydration; E87.5 Hyperkalemia; Z79.4 Long term (current) use of insulin; E03.9 Hypothyroidism, unspecified; E83.39 Other disorders of phosphorus metabolism; A08.4 Viral intestinal infection, unspecified
CPT/HCPCS: 80048; 81001; 82009; 82947; 82962; 83036; 83735; 84100; 84443; 85025; 85027; 97802; 99285; J7030; J7040; A4216; J2405; J7799

== ENCOUNTER 2018-10-08 11:44 | Inpatient (IN) | payer MEDICAID, SELFPAY ==
[2018-10-08] VITALS (14 sets, daily range): BP systolic 112–137; BP diastolic 73–92; PULSE 8–107; RESP 13–18; TEMP 36.3–36.8; O2SAT 97–99; BMI 22.8; BMI 22.7
[2018-10-08 12:25] LABS: Bedside Glucose 347 mg/dL (70-110)
--- NOTE | 2018-10-08 12:41 | ED.VISSUMM ---
- ER Visit Summary Date of Service: 10/08/18 Chief Complaint: Possible DKA History of Present Illness: The patient is a 52 M who presents with possible DKA that has been getting worse over the past couple days. Patient states his blood sugars at home have been in the 500s and that would come back down to the 200s. Patient states that he is having some polyuria and polydipsia. Patient states he has been having some nausea and vomiting and some intermittent blurred vision. Patient denies any fevers but admits to some subjective chills. Patient states he is a type I diabetic and checks his blood sugars frequently. Physical Examination: Vital signs are stable except for mild tachycardia of 107. Patient is afebrile. Patient is in no acute distress. Oral mucosa is pink and moist. Neck is supple. Trachea is midline. There is no JVD noted. Heart was regular rate and rhythm. Lungs are clear and equal bilateral. Abdomen is soft. Bowel sounds are normal. There is no tenderness. There is no guarding noted. Skin is warm dry. Cranial nerves II through XII are intact. There are no focal motor or sensory deficits noted. The remaining physical exam is within normal limits. Test Results: Arterial blood gas showed a pH of 7.28 with a PO2 of 93 PCO2 of 29.4, bicarb of 13.9, and oxygen saturation 96%. CBC was normal. Basic metabolic profile showed a glucose of 281, CO2 of 19,, and sodium of 133. Anion gap was 14. Urinalysis showed ketones of 150 and glucose of 1000. There is no evidence of urinary tract infection. Emergency Department Course and Treatment: Patient was started on insulin drip at 0.05 units/kg/h. Case was discussed with Dr. Harvey. He will admit the patient to his service to the intensive care unit. Patient understood and was agreeable with the plan. All questions were answered. Disposition: Admit to ICU Impression: Diabetic ketoacidosis This note was generated with [employer] dictation software. It may contain incorrect words, spelling, and punctuation that were not noted in review of the chart prior to signing ED Disposition - Plan for ED Patient: Disposition: Home or Assisted Living Diagnosis: Diabetic ketoacidosis Referrals: Johnathan Wheeler III, MD [Primary Care Provider] -
[2018-10-08 12:59] LABS: Absolute Lymphocyte Count 0.72 X10^3/ul (0.83-4.51); Absolute Neutrophil Count 6.1 X10^3/uL (2.0-7.7); Basophil# 0.03 X10^3/uL; Basophil% 0.4 % (0-1); Eosinophil# 0.01 X10^3/uL; Eosinophils% 0.1 % (0-5); Hemoglobin 15.9 g/dl (13.0-16.5); Lymphocyte # 0.72 X10^3/ul (4.0); Lymphocyte % 9.6 % (19-41); Mean Corp Hgb Conc 33.8 g/gl (32-36); Mean Corpuscular Volume 91.6 fL (80-94); Mean Platelet Vol. 9.8 fl (6.2-12.0); Monocyte# 0.56 X10^3/uL; Monocyte% 7.5 % (0-10); Neutrophil # 6.13 X10^3/uL (2.7-7.7); Neutrophil % 82.1 % (47-70); POSITIVE COUNT NO; POSITIVE DIFFERENTIAL NO; POSITIVE MORPHOLOGY NO; Platelet Count 427 K/mm3 (150-450); RBC Distribution Width CV 12.5 % (11.6-14.6); RBC Distribution Width SD 41.3 fl (35.1-43.9); Red Blood Count 5.13 M/mm3 (4.6-6.2); White Blood Count 7.5 K/mm3 (4.4-11.0)
[2018-10-08] MEDS: 0.9% Normal Saline 1,000 ML 1000 ML IV (13:02)
[2018-10-08 13:05] LABS: Allen Test POS; Base Excess -13 mmol/L (-2 to +2); Bicarbonate 13.9 mmol/L (22-26); Blood Gas Specimen Type ART; O2 Delivery Device Room Air; PO2 93 mmHG (75-100); SITE R Radial; SO2 96 % (95-99); Time Given 1250; Total Carbon Dioxide 15 mmol/L; pCO2 29.4 mmHg (35-45); pH 7.28 (7.35-7.45)
[2018-10-08 13:08] LABS: Bacteria 0 SEEN /hpf (None Seen); Mucous, Urine 0 SEEN /hpf (<or=2+); Red Blood Cells-Urine 0 SEEN /hpf (0-5); Squamous Epithelial Cells - UA 0 SEEN /hpf (0-5); White Blood Cells 0 SEEN /hpf (0-5)
[2018-10-08 13:10] LABS: Color, Urine Yellow (Yellow); Glucose, Dipstick 1000 mg/dl (Normal); Leukocyte Esterase-Dipstick Negative /ul (Negative); Nitrite-Dipstick Negative (Negative); Occult Blood-Urine Negative /ul (Negative); Protein-Dipstick 15 mg/dl (Negative); Specific Gravity, Urine 1.025 (1.002-1.030); Urine Bilirubin Dipstick Negative (Negative); Urine Clarity Sl. Cloudy (Clear); Urine Urobilinogen Normal (Normal)
[2018-10-08 13:13] LABS: Ketone-Dipstick 150 mg/dl (Negative)
[2018-10-08 13:16] LABS: Hyaline Cast 0-5 SEEN /lpf (0-5)
[2018-10-08 13:48] LABS: Anion Gap 14 (5-15); BUN 23 mg/dL (7-18); Calcium,Total 9.1 mg/dL (8.5-10.1); Chloride 100 mmol/L (98-107); Creatinine, Serum 1.21 mg/dL (0.70-1.30); EST Glomerular Filtration Rate 66 mL/min (>60); Est Glom Filt Rate - Afr Amer 80 mL/min (>60); Estimated Creatinine Clearance 73.15 ml/min; Glucose 281 mg/dL (74-106); Potassium 4.5 mmol/L (3.5-5.1); Sodium Level 133 mmol/L (136-145)
--- NOTE | 2018-10-08 14:36 | ED.RN ---
was notified of urine ketones 150
[2018-10-08 14:45] LABS: Bedside Glucose 225 mg/dL (70-110)
--- NOTE | 2018-10-08 15:31 | HP.PCM_ITS ---
Problem List (1) Type 1 diabetes mellitus Status: Chronic Qualifiers: (2) DKA (diabetic ketoacidoses) Status: Acute (3) Hypothyroidism Status: Chronic Qualifiers: History of Present Illness Date of Admission: 10/08/18 Chief Complaint: Nausea, vomiting, weakness, high blood sugar. The patient is a 52 year old M with past medical history as mentioned above presented to the emergency room because of hyper sugar, nausea and vomiting. The patient states that he has been battling his blood sugar which has been very controlled and he has been giving himself more insulin. In the last couple of days, he started having nausea and vomiting, no abdominal pain and his blood sugar has been high up to more than 500s. Today, he went to work and he had an episode of nausea and vomiting, associated with weakness as well as polyuria and his urine was very dark and with strange smell according to the patient. There was no aggravating or relieving factors for those nausea and vomiting. He denied fever or chills. He denied cough or sputum production. He denies chest pain or shortness of breath. In the emergency department, his vital signs are stable. His routine blood work was remarkable for sodium of 133, bicarb of 19, BUN of 23 and glucose of 281. Acetone level was small. ABG revealed pH of 7.28, PCO2 of 29 and PO2 of 93. Patient was started on IV insulin drip for DKA. He is being admitted for acute mild diabetic ketoacidosis. Past Medical History Past Medical History (Chronic Problems): Chronic Problems (Last Updated 03/12/18 @ 13:29 by Mercedes Galeano) Type 1 diabetes mellitus (Chronic) Hypothyroidism (Chronic) Medical History: Medical History (Last Updated 03/12/18 @ 13:29 by Mercedes Galeano) Hypothyroidism E03.9 Type 1 diabetes mellitus E10.9 Dx : 2007 Last exacerbation : DKA : 01/2018 Hypoglycemic episode : never ER visit : 01/2018 Allergies No Known Allergies Allergy (Verified 10/08/18 11:45) Home Medications: Ambulatory Orders Medication Instructions Recorded Aspirin [Aspirin, Baby] 81 mg PO DAILY@0800 08/22/14 insulin lispro (U- 100) 100 See Rx Instructions SC TID #30 ml 06/17/18 unit/mL subcutaneous pen Insulin Glargine,Hum.rec.anlog 88 unit SC DAILY 10/08/18 [Basaglar KwikPen U-100 Insulin] Levothyroxine [Synthroid] 137 mcg PO DAILY 10/08/18 Surgical History: - - Right lithotripsy secondary to right ureteral calculi with obstruction, leg fracture/repair. Psychiatric History: No pertinent psych hx Lives: Spouse/ Significant Other Smoking Status: Never smoker Tobacco Use: Non-smoker Alcohol: None Drugs: None - *Family History Maternal Family History: Family History (Last Updated 03/12/18 @ 13:18 by Mercedes Galeano) Mother Breast cancer Father Hypertension History Items: No pertinent history Paternal Family History: Family History (Last Updated 03/12/18 @ 13:18 by Mercedes Galeano) Mother Breast cancer Father Hypertension History Items: Heart Disease - DC Review of Systems Constitutional: Reports: Weakness. Denies: Anorexia, Chills, Fever Eyes: Denies: Blurred vision, Double vision, Drainage, Redness HEENT: Denies: Difficulty Hearing, Ear Pain, Eye Pain, Nasal Congestion, Sore Throat Cardiovascular: Denies: Chest Pain, Claudication, Chest Pressure, Heaviness, Light Headedness, Palpitations, Syncope Respiratory: Denies: Cough, Pleuritic Pain, Shortness of Breath, Sputum production, Wheezing Gastrointestinal: Reports: Nausea, Vomiting. Denies: Abdominal Pain, Constipation, Diarrhea Genitourinary: Denies: Dysuria, Frequency, Hematuria Musculoskeletal: Denies: Arm Pain, Back Pain, Foot Pain Skin: Denies: Dryness, Rash Neurological: Denies: Balance problems, Double vision, Change in Speech, Slurred speech, Confusion, Focal weakness, Headaches, Incoordination Psychiatric: Denies: Anxiety, Depression Endocrine: Reports: Polyuria. Denies: Change in Body Habitus, Polydipsia VTE Information - Inpt Only VTE Present on Admission: No VTE Mechan Device Prophylaxis: SCD's VTE Pharm Prophylaxis ordered?: No Patient Problems: Active and Suspected Problems (Last Updated 03/12/18 @ 13:29 by Mercedes Galeano) DKA (diabetic ketoacidoses) (Acute) - Physical Exam General: Alert, Oriented x3, Cooperative, No apparent distress HEENT: Atraumatic, PERRLA, EOMI, Normocephalic Oral: Moist Mucosa, No Gingival or Mucosal Lesions/ Ulcerations Neck: Supple, No JVD, Negative Carotid Bruits, Trachea Midline, Thyroid Normal Size and Texture Lungs: Clear to auscultation, Normal air movement, No rhonchi, No wheeze, No rales Cardiovascular: Regular rate, Regular Rhythm, Normal S1, Normal S2, No murmurs, PMI Normal Abdomen: Bowel Sounds Present, Soft, Non Tender, Non-Distended, No Hepato- splenomegaly Extremities: No clubbing, No cyanosis, No edema Skin: No rashes, No breakdown Lymphatic: No Cervical, Supraclavicular, or Inguinal Adenopathy Neurological: Cranial nerves II-XII grossly intact, Motor Exam 5/5 strength throughout Psych/Mental Status: Normal Affect, Appropriate, Alert and oriented to time, place, person, mood and affect Vital Signs Temp Pulse Resp BP Pulse Ox 98 F 107 H 18 123/79 H 97 10/08/18 11:45 10/08/18 11:45 10/08/18 11:45 10/08/18 13:44 10/08/18 13:44 Oxygen Delivery Method Room Air Weight: 163 lb 5.8 oz Body Mass Index (BMI) 22.8 Finger Stick Blood Glucose 225 Laboratory Tests Past 24 Hrs 10/08/18 10/08/18 10/08/18 12:41 12:41 12:41 WBC 7.5 RBC 5.13 Hgb 15.9 Hct 47.0 MCV 91.6 MCH 31.0 MCHC 33.8 RDW 12.5 RDW Differential 41.3 Plt Count 427 MPV 9.8 Immature Gran % (Auto) 0.300 Neut % (Auto) 82.1 H Lymph % (Auto) 9.6 L [place] % (Auto) 7.5 Eos % (Auto) 0.1 Baso % (Auto) 0.4 Absolute Neuts (auto) 6.1 Absolute Lymphs (auto) 0.72 L Total Counted Not Reportable Specimen Type Sample Site pH Bicarbonate Actual POC Total CO2 Base Excess O2 Saturation ABG pCO2 ABG pO2 Sebastián Test O2 Delivery Device Blood Gas Notified Whom Blood Gas Notified Time Sodium Cancelled Potassium Cancelled Chloride Cancelled Carbon Dioxide Cancelled Anion Gap Cancelled BUN Cancelled Creatinine Cancelled Estim Creat Clear Calc Cancelled Est GFR (MDRD) Af Amer Cancelled Est GFR (MDRD) Non-Af Cancelled BUN/Creatinine Ratio Cancelled Glucose Cancelled Calcium Cancelled Urine Color Urine Clarity Urine pH Ur Specific [place] Urine Protein Urine Glucose (UA) Urine Ketones Urine Occult Blood Urine Nitrite Urine Bilirubin Urine Urobilinogen Ur Leukocyte Esterase Urine RBC Urine WBC Ur Squamous Epith Cells Urine Bacteria Hyaline Casts Urine Mucus Acetone Level SMALL H 10/08/18 10/08/18 10/08/18 12:59 13:01 13:15 WBC RBC Hgb Hct MCV MCH MCHC RDW RDW Differential Plt Count MPV Immature Gran % (Auto) Neut % (Auto) Lymph % (Auto) [place] % (Auto) Eos % (Auto) Baso % (Auto) Absolute Neuts (auto) Absolute Lymphs (auto) Total Counted Specimen Type ART Sample Site R Radial pH 7.28 L Bicarbonate Actual 13.9 L POC Total CO2 15 Base Excess -13 L O2 Saturation 96 ABG pCO2 29.4 L ABG pO2 93 Sebastián Test POS O2 Delivery Device Room Air Blood Gas Notified Whom ED Blood Gas Notified Time 1250 Sodium 133 L Potassium 4.5 Chloride 100 Carbon Dioxide 19.0 L Anion Gap 14 BUN 23 H Creatinine 1.21 Estim Creat Clear Calc 73.15 Est GFR (MDRD) Af Amer 80 Est GFR (MDRD) Non-Af 66 BUN/Creatinine Ratio 19.0 Glucose 281 H Calcium 9.1 Urine Color Yellow Urine Clarity Sl. Cloudy Urine pH 5.0 Ur Specific [place] 1.025 Urine Protein 15 H Urine Glucose (UA) 1000 H Urine Ketones 150 H Urine Occult Blood Negative Urine Nitrite Negative Urine Bilirubin Negative Urine Urobilinogen Normal Ur Leukocyte Esterase Negative Urine RBC 0 SEEN Urine WBC 0 SEEN Ur Squamous Epith Cells 0 SEEN Urine Bacteria 0 SEEN Hyaline Casts 0-5 SEEN Urine Mucus 0 SEEN Acetone Level POC Glucose 10/08/18 10/08/18 14:37 12:17 POC Glucose 225 H 347 H Assessment/Plan All Active Problems (Last Updated 03/12/18 @ 13:29 by Mercedes Galeano) DKA (diabetic ketoacidoses) (Acute) This is a 52 years old male patient presented to the emergency department because of high blood sugar, nausea, vomiting and weakness and he was found to have diabetic ketoacidosis and he is being admitted for treatment. #1 diabetic ketoacidosis: Mild. Patient has history of type 1 diabetes mellitus, uncontrolled. He was admitted to this hospital on March, for DKA. He has been struggling with his blood sugar which has been very high after his a few weeks ago and he mentioned that he is going under lots of stress. His vital signs are stable. No symptoms suggestive of any infection. Blood work revealed anion gap of 14 and carbon dioxide of 19. ABG revealed pH of 7.28, PCO2 of 29 and PO2 of 93 consistent with metabolic acidosis. He does have small ketones. He was started on low-dose insulin drip in the ED. Plan: Admit to ICU, initiate DKA protocol, continue low-dose IV insulin drip, BMP every 4 hours, IV fluids, IV antiemetics, repeat CBC and BMP tomorrow morning. #2 uncontrolled type 1 diabetes mellitus: Hemoglobin A1c was 10.7 on January,. Patient stated that his blood sugars fluctuate significantly, goes up to more than 500s. He has been seeing endocrinology [facility] at [facility]. Plan as above. #3 hypothyroidism: Continue levothyroxine. #4 DVT prophylaxis: Low risk patient, SCDs. This note was generated with [employer] dictation software. It may contain incorrect words, spelling, and punctuation that were not noted in checking the note before signing. Code Visit Inpatient E&M: 86905 Init Hosp L3
[2018-10-08 15:45] LABS: Bedside Glucose 146 mg/dL (70-110)
--- NOTE | 2018-10-08 16:01 | ED.RN ---
report called to maryellen jurado.
[2018-10-08] MEDS: Dext 5%-0.45% NS 1,000 ML 150 ML IV (16:49)
--- NOTE | 2018-10-08 17:09 | CASEMGMT ---
RN CM Assessment Introduced role of RN CM to patient.? Patient is alert, oriented and able?to participate in RN CM Assessment. ?Care providers, pharmacy, and demographics verified. Presentation: Blood Sugar in the 500's at home. Polydipsia, Polyuria. N/V and intermittent Blurred Vision. Admit Dx: DKA Re-Admit: No Barriers/Issues: None PCP: Johnathan Wheeler Specialists: Endo- Past seen FRANCOIS Magana and states retired and needs to establish a new one. [facility]acy: [facility] Insurance: [employer] Rx Benefit: Yes? LNOK: LW/HPOA: No, [facility] has the information. Living Arrangements:? Lives alone in a SS Home, 2 steps to enter home. ADL?s: Independent with ambulation and ADL's Transportation: Patient drives, drove self to hospital and plans to drive on DC DME: Glucometer HHC: None SNF: None Goal: Home and does not think will need anything on DC DC PLAN: Home with no anticipated needs identified at this time. Daljit Ruiz RNCM
[2018-10-08 17:20] LABS: Bedside Glucose 91 mg/dL (70-110)
[2018-10-08 18:13] LABS: Hemoglobin A1c 9.8 % (4.2-6.3)
[2018-10-08 18:15] LABS: Bedside Glucose 90 mg/dL (70-110)
[2018-10-08 19:01] LABS: Bedside Glucose 87 mg/dL (70-110)
[2018-10-08 19:10] LABS: Anion Gap 9 (5-15); BUN 17 mg/dL (7-18); Calcium,Total 8.8 mg/dL (8.5-10.1); Chloride 106 mmol/L (98-107); Creatinine, Serum 0.95 mg/dL (0.70-1.30); EST Glomerular Filtration Rate 88 mL/min (>60); Est Glom Filt Rate - Afr Amer 106 mL/min (>60); Estimated Creatinine Clearance 92.96 ml/min; Glucose 93 mg/dL (74-106); Potassium 3.9 mmol/L (3.5-5.1); Sodium Level 140 mmol/L (136-145)
[2018-10-08 20:21] LABS: Bedside Glucose 135 mg/dL (70-110)
[2018-10-08 23:01] LABS: Bedside Glucose 148 mg/dL (70-110)
[2018-10-08 23:01] LABS: Bedside Glucose 120 mg/dL (70-110)
[2018-10-08 23:10] LABS: Anion Gap 7 (5-15); BUN 15 mg/dL (7-18); BUN/Creat Ratio 18.5 RATIO (10-20); Calcium,Total 8.2 mg/dL (8.5-10.1); Chloride 107 mmol/L (98-107); Creatinine, Serum 0.81 mg/dL (0.70-1.30); EST Glomerular Filtration Rate 105 mL/min (>60); Est Glom Filt Rate - Afr Amer 127 mL/min (>60); Estimated Creatinine Clearance 109.03 ml/min; Glucose 121 mg/dL (74-106); Potassium 3.1 mmol/L (3.5-5.1); Sodium Level 138 mmol/L (136-145)
[2018-10-09] VITALS (10 sets, daily range): BP systolic 94–145; BP diastolic 62–82; PULSE 62–85; RESP 15–20; TEMP 36.5–36.7; O2SAT 97–99
[2018-10-09] MEDS: Dext 5%-0.45% NS 1,000 ML 150 ML IV (00:03)
[2018-10-09 00:11] LABS: Bedside Glucose 100 mg/dL (70-110)
[2018-10-09 05:29] LABS: Absolute Lymphocyte Count 1.12 X10^3/ul (0.83-4.51); Absolute Neutrophil Count 2.5 X10^3/uL (2.0-7.7); Basophil# 0.02 X10^3/uL; Basophil% 0.5 % (0-1); Eosinophil# 0.14 X10^3/uL; Eosinophils% 3.2 % (0-5); Hemoglobin 12.6 g/dl (13.0-16.5); Lymphocyte # 1.12 X10^3/ul (4.0); Lymphocyte % 25.7 % (19-41); Mean Corp Hgb Conc 33.2 g/gl (32-36); Mean Corpuscular Hgb 30.9 pg (27.0-32.0); Mean Corpuscular Volume 93.1 fL (80-94); Mean Platelet Vol. 9.6 fl (6.2-12.0); Monocyte# 0.62 X10^3/uL; Monocyte% 14.2 % (0-10); Neutrophil # 2.46 X10^3/uL (2.7-7.7); Neutrophil % 56.4 % (47-70); POSITIVE COUNT NO; POSITIVE DIFFERENTIAL NO; POSITIVE MORPHOLOGY NO; Platelet Count 304 K/mm3 (150-450); RBC Distribution Width CV 12.5 % (11.6-14.6); RBC Distribution Width SD 41.7 fl (35.1-43.9); Red Blood Count 4.08 M/mm3 (4.6-6.2); White Blood Count 4.4 K/mm3 (4.4-11.0)
[2018-10-09 05:41] LABS: Anion Gap 9 (5-15); BUN 13 mg/dL (7-18); BUN/Creat Ratio 16.8 RATIO (10-20); Calcium,Total 7.7 mg/dL (8.5-10.1); Chloride 108 mmol/L (98-107); Creatinine, Serum 0.78 mg/dL (0.70-1.30); EST Glomerular Filtration Rate 111 mL/min (>60); Est Glom Filt Rate - Afr Amer 134 mL/min (>60); Estimated Creatinine Clearance 113.22 ml/min; Glucose 211 mg/dL (74-106); Potassium 3.5 mmol/L (3.5-5.1); Sodium Level 140 mmol/L (136-145)
[2018-10-09] MEDS: Levothyroxine 137 MCG Tablet PO (06:57)
[2018-10-09 07:01] LABS: Bedside Glucose 188 mg/dL (70-110)
--- NOTE | 2018-10-09 07:16 | PN_ITS ---
Patient Problems: Active and Suspected Problems (Last Updated 03/12/18 @ 13:29 by Mercedes Galeano) DKA (diabetic ketoacidoses) (Acute) Subjective: Patient has history of type 1 diabetes mellitus. Blood sugar is controlled. Was in DKA. DKA resolved. Mild hypokalemia. Vitals/I&O's: Vital Signs Temp Pulse Resp BP Pulse Ox 98 F 62 17 94/62 97 10/09/18 05:00 10/09/18 06:00 10/09/18 06:00 10/09/18 06:00 10/09/18 06:00 Oxygen Delivery Method Room Air Weight: 167 lb 8.821 oz Body Mass Index (BMI) 22.7 Finger Stick Blood Glucose 100 Intake and Output for Last 24 Hours 10/07/18 10/08/18 10/09/18 23:59 23:59 23:59 Intake Total 300 / 300 1388 / 1388 Output Total 675 / 675 Balance 300 / 300 713 / 713 General: Alert, Oriented x3, Cooperative HEENT: Atraumatic, PERRLA, EOMI, Normocephalic Oral: Moist Mucosa, No Gingival or Mucosal Lesions/ Ulcerations Neck: Supple, No JVD, Negative Carotid Bruits Lungs: Clear to auscultation, Normal air movement Cardiovascular: Regular rate, Regular Rhythm, Normal S1, Normal S2, No murmurs Abdomen: Bowel Sounds Present, Soft, Non Tender, Non-Distended Extremities: No edema, Capillary Refill Less than 3 Seconds Skin: No rashes, No breakdown Musculoskeletal: No Tenderness to Palpation of Joints or Extremities Neurological: Cranial nerves II-XII grossly intact Psych/Mental Status: Normal Affect, Appropriate Laboratory Results 10/08/18 12:17: POC Glucose 347 H 10/08/18 12:41: WBC 7.5, RBC 5.13, Hgb 15.9, Hct 47.0, MCV 91.6, MCH 31.0, MCHC 33.8, RDW 12.5, RDW Differential 41.3, Plt Count 427, MPV 9.8, Immature Gran % (Auto) 0.300, Neut % (Auto) 82.1 H, Lymph % (Auto) 9.6 L, [place] % (Auto) 7.5, Eos % (Auto) 0.1, Baso % (Auto) 0.4, Absolute Neuts (auto) 6.1, Absolute Lymphs (auto) 0.72 L, Total Counted Not Reportable 10/08/18 12:41: Sodium Cancelled, Potassium Cancelled, Chloride Cancelled, Carbon Dioxide Cancelled, Anion Gap Cancelled, BUN Cancelled, Creatinine Cancelled, Estim Creat Clear Calc Cancelled, Est GFR (MDRD) Af Amer Cancelled, Est GFR (MDRD) Non-Af Cancelled, BUN/Creatinine Ratio Cancelled, Glucose Cancelled, Calcium Cancelled 10/08/18 12:41: Acetone Level SMALL H 10/08/18 12:41: Hemoglobin A1c 9.8 H 10/08/18 12:59: Specimen Type ART, Sample Site R Radial, pH 7.28 L, Bicarbonate Actual 13.9 L, POC Total CO2 15, Base Excess -13 L, O2 Saturation 96, ABG pCO2 29.4 L, ABG pO2 93, Sebastián Test POS, O2 Delivery Device Room Air, Blood Gas Notified Whom ED MD, Blood Gas Notified Time 1250 10/08/18 13:01: Urine Color Yellow, Urine Clarity Sl. Cloudy, Urine pH 5.0, Ur Specific [place] 1.025, Urine Protein 15 H, Urine Glucose (UA) 1000 H, Urine Ketones 150 H, Urine Occult Blood Negative, Urine Nitrite Negative, Urine Bilirubin Negative, Urine Urobilinogen Normal, Ur Leukocyte Esterase Negative, Urine RBC 0 SEEN, Urine WBC 0 SEEN, Ur Squamous Epith Cells 0 SEEN, Urine Bacteria 0 SEEN, Hyaline Casts 0-5 SEEN, Urine Mucus 0 SEEN 10/08/18 13:15: Sodium 133 L, Potassium 4.5, Chloride 100, Carbon Dioxide 19.0 L , Anion Gap 14, BUN 23 H, Creatinine 1.21, Estim Creat Clear Calc 73.15, Est GFR (MDRD) Af Amer 80, Est GFR (MDRD) Non-Af 66, BUN/Creatinine Ratio 19.0, Glucose 281 H, Calcium 9.1 10/08/18 14:37: POC Glucose 225 H 10/08/18 15:42: POC Glucose 146 H 10/08/18 17:10: POC Glucose 91 10/08/18 18:11: POC Glucose 90 10/08/18 18:45: Sodium 140, Potassium 3.9, Chloride 106, Carbon Dioxide 25.0, Anion Gap 9, BUN 17, Creatinine 0.95, Estim Creat Clear Calc 92.96, Est GFR (MDRD) Af Amer 106, Est GFR (MDRD) Non-Af 88, BUN/Creatinine Ratio 18.0, Glucose 93, Calcium 8.8 10/08/18 18:54: POC Glucose 87 10/08/18 20:15: POC Glucose 135 H 10/08/18 21:31: POC Glucose 148 H 10/08/18 22:50: Sodium 138, Potassium 3.1 L, Chloride 107, Carbon Dioxide 24.0, Anion Gap 7, BUN 15, Creatinine 0.81, Estim Creat Clear Calc 109.03, Est GFR (MDRD) Af Amer 127, Est GFR (MDRD) Non-Af 105, BUN/Creatinine Ratio 18.5, Glucose 121 H, Calcium 8.2 L 10/08/18 22:50: POC Glucose 120 H 10/09/18 00:02: POC Glucose 100 10/09/18 05:20: WBC 4.4, RBC 4.08 L, Hgb 12.6 L, Hct 38.0 L, MCV 93.1, MCH 30.9, MCHC 33.2, RDW 12.5, RDW Differential 41.7, Plt Count 304, MPV 9.6, Immature Gran % (Auto) 0.000, Neut % (Auto) 56.4, Lymph % (Auto) 25.7, [place] % (Auto) 14.2 H, Eos % (Auto) 3.2, Baso % (Auto) 0.5, Absolute Neuts (auto) 2.5, Absolute Lymphs (auto) 1.12, Total Counted Not Reportable 10/09/18 05:20: Sodium 140, Potassium 3.5, Chloride 108 H, Carbon Dioxide 23.0, Anion Gap 9, BUN 13, Creatinine 0.78, Estim Creat Clear Calc 113.22, Est GFR (MDRD) Af Amer 134, Est GFR (MDRD) Non-Af 111, BUN/Creatinine Ratio 16.8, Glucose 211 H, Calcium 7.7 L 10/09/18 06:56: POC Glucose 188 H Current Medications Aspirin (Aspirin, Baby) 81 mg PO DAILY@0800 DELVIN Dextrose (D50w Syringe) 0 gm IV X1 PRN; Protocol PRN Reason: Hypoglycemia Glucagon () 1 mg IM .X1 PRN PRN Reason: Hypoglycemia Pantoprazole Sodium 40 mg/ (Sodium Chloride) 110 mls @ 330 mls/hr IV Q24 [facility] Last Admin: 10/08/18 18:56 Dose: 330 mls/hr Insulin Glargine (Lantus (Bkc)) 44 units SC BID [facility] Last Admin: 10/09/18 00:50 Dose: 44 u Insulin Human Lispro (Humalog Kwikpen (Bkc)) 0 unit SC ACHS [facility]; Protocol Levothyroxine Sodium (Synthroid) 137 mcg PO DAILY@0600 [facility] Last Admin: 10/09/18 06:57 Dose: 137 mcg Ondansetron HCl (Zofran) 4 mg IV Q6H PRN PRN PRN Reason: NAUSEA/VOMITING Sodium Chloride () 5 - 15 ml IV UD PRN PRN Reason: SALINE FLUSH Medical Necessity - Tobacco Use Smoking Status: Never smoker Tobacco Use: Non-smoker Assessment/Plan All Active Problems (Last Updated 03/12/18 @ 13:29 by Mercedes Galeano) DKA (diabetic ketoacidoses) (Acute) Is a 52-year-old admitted with DKA. History of type 1 diabetes mellitus. Anion gap is closed. Anion gap 9. Bicarb 23. K3.5. Magnesium 1.9. Patient is on long-acting Lantus insulin and short-acting insulin. Exact precipitating factor leading to DKA is unclear as the patient denies any focal point of infection.. He has insulin at home and is compliant his blood sugar still fluctuates even on scheduled doses of Lantus and short-acting insulin. May be evaluated for insulin pump. Laboratory Results 10/08/18 12:41: Acetone Level SMALL H 10/08/18 12:41: Hemoglobin A1c 9.8 H ABG pCO2 29.4 L, ABG pO2 93, Sebastián Test POS, O2 Delivery Device Room Air, Blood Gas Notified Whom ED , Blood Gas Notified Time 1250 10/08/18 13:01: Urine Color Yellow, Urine Clarity Sl. Cloudy, Urine pH 5.0, Ur Specific [place] 1.025, Urine Protein 15 H, Urine Glucose (UA) 1000 H, Urine Ketones 150 H, Urine Occult Blood Negative, Urine Nitrite Negative, Urine Bilirubin Negative, Urine Urobilinogen Normal, Ur Leukocyte Esterase Negative, Urine RBC 0 SEEN, Urine WBC 0 SEEN, Ur Squamous Epith Cells 0 SEEN, Urine Bacteria 0 SEEN, Hyaline Casts 0-5 SEEN, Urine Mucus 0 SEEN 10/08/18 22:50: Sodium 138, Potassium 3.1 L, Chloride 107, Carbon Dioxide 24.0, Anion Gap 7, BUN 15, Creatinine 0.81, Estim Creat Clear Calc 109.03, Est GFR (MDRD) Af Amer 127, Est GFR (MDRD) Non-Af 105, BUN/Creatinine Ratio 18.5, Glucose 121 H, Calcium 8.2 L 10/08/18 22:50: POC Glucose 120 H 10/09/18 00:02: POC Glucose 100 10/09/18 05:20: WBC 4.4, RBC 4.08 L, Hgb 12.6 L, Hct 38.0 L, MCV 93.1, MCH 30.9, MCHC 33.2, RDW 12.5, RDW Differential 41.7, Plt Count 304, MPV 9.6, Immature Gran % (Auto) 0.000, Neut % (Auto) 56.4, Lymph % (Auto) 25.7, [place] % (Auto) 14.2 H, Eos % (Auto) 3.2, Baso % (Auto) 0.5, Absolute Neuts (auto) 2.5, Absolute Lymphs (auto) 1.12, Total Counted Not Reportable 10/09/18 05:20: Sodium 140, Potassium 3.5, Chloride 108 H, Carbon Dioxide 23.0, Anion Gap 9, BUN 13, Creatinine 0.78, Estim Creat Clear Calc 113.22, Est GFR (MDRD) Af Amer 134, Est GFR (MDRD) Non-Af 111, BUN/Creatinine Ratio 16.8, Glucose 211 H, Calcium 7.7 L 10/09/18 06:56: POC Glucose 188 H
--- NOTE | 2018-10-09 07:52 | PCM.DC ---
- Discharge Diagnoses Current Active Problems: Current Active and Chronic Problems (Last Updated 03/12/18 @ 13:29 by Mercedes Galeano) DKA (diabetic ketoacidoses) (Acute) You will use the following diet at home:: Calorie/Carbohydrate Controlled (specify 1200, 1400, etc) - 1800 ADA diet Your food should be the consistency of: Regular Discharge Activity: May Not Drive - for 1-2 days Call your doctor if you observe: Fever of 101 or Higher, Inability to urinate, Shortness of breath, Fainting spells, Swelling in the ankles, Chest pain, Increased palpitations (irregular heartbeat) Allergies/Adverse Reactions: Allergies No Known Allergies Allergy (Verified 10/08/18 11:45) Medications to take at Discharge Aspirin [Aspirin, Baby] 81 mg PO DAILY@0800 08/22/14 insulin lispro (U- 100) 100 unit/mL subcutaneous pen See Rx Instructions SC TID #30 ml 06/17/18 Levothyroxine [Synthroid] 137 mcg PO DAILY 10/08/18 Insulin Glargine,Hum.rec.anlog [Basaglar Kwikpen U-100] 45 unit SC BID #0 10/09/18 Primary Care Physician: Johnathan Wheeler III, MD [Primary Care Provider] - Please follow up with your Primary Care Physician in: in 1-2 week Test Results: Test results from this visit will be discussed in further detail at your follow-up appointment, if applicable.
[2018-10-09] MEDS: Aspirin 81 MG TAB.CHEW PO (08:29)
[2018-10-09] MEDS: Insulin Lispro 100 UNIT/ML INSULN.PEN SC (08:32)
[2018-10-09 08:36] LABS: Magnesium 1.9 mg/dL (1.6-2.6)
--- NOTE | 2018-10-09 10:43 | DS.PCM_ITS ---
Discharge Date and Diagnosis Date of Admission: 10/08/18 Date of Discharge: 10/09/18 - Primary Discharge Diagnosis Active and Suspected Problems (Last Updated 03/12/18 @ 13:29 by Mercedes Galeano) DKA (diabetic ketoacidoses) (Acute) - Secondary Discharge Diagnosis Chronic Problems (Last Updated 03/12/18 @ 13:29 by Mercedes Galeano) Type 1 diabetes mellitus (Chronic) Hypothyroidism (Chronic) Hospital Course and Treatment Operations: None Summary of Care Provided: [] This is a 52 years old male with history of type 1 diabetes, uncontrolled presen kesha to the emergency department because of high blood sugar, nausea, vomiting and weakness and he was found to have diabetic ketoacidosis and he is being admitted for treatment. #1 diabetic ketoacidosis: Patient has history of type 1 diabetes mellitus, uncontrolled. He was admitted to this hospital on March, for DKA. The patient blood sugar fluctuates high and low even his compliant with his scheduled doses of Lantus insulin and short-acting insulin. No focal symptoms suggestive of infection. Vital signs are stable. Blood work revealed anion gap of 14 and carbon dioxide of 19. ABG revealed pH of 7.28, PCO2 of 29 and PO2 of 93 consistent with metabolic acidosis. He does have small ketones. The patient was admitted in ICU on low-dose insulin drip, IV fluid normal saline as per DKA protocol and supportive management with antiemetics and BMP every 4 hours. Potassium was 3.5 and it is being replaced. Magnesium 1.9. Repeat K4.6 Blood sugar was controlled; last Accu-Chek 144. #2 uncontrolled type 1 diabetes mellitus: Hemoglobin A1c was 10.7 on January,. Patient stated that his blood sugars fluctuate significantly, goes up to more than 500s. 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 Advised to evaluate further for insulin pump. #3 hypothyroidism: Continue levothyroxine. #4 DVT prophylaxis: Low risk patient, SCDs. Patient was admitted as inpatient but was discharged because of sooner recovery than expected at the time of admission. Laboratory Results 10/08/18 12:41: Hemoglobin A1c 9.8 H Subjective: Please see progress note of today Patient is seen and examined - Physical Exam Vital Signs Temp Pulse Resp BP Pulse Ox 98 F 68 16 114/70 99 10/09/18 05:00 10/09/18 07:52 10/09/18 07:52 10/09/18 07:52 10/09/18 07:52 Oxygen Delivery Method Room Air Weight: 167 lb 8.821 oz Body Mass Index (BMI) 22.7 Finger Stick Blood Glucose 100 Intake and Output for Last 24 Hours 10/07/18 10/08/18 10/09/18 23:59 23:59 23:59 Intake Total 300 / 300 1388 / 1388 Output Total 675 / 675 Balance 300 / 300 713 / 713 Laboratory Tests Past 24 Hrs 10/08/18 10/08/18 10/08/18 12:41 12:41 12:41 WBC 7.5 RBC 5.13 Hgb 15.9 Hct 47.0 MCV 91.6 MCH 31.0 MCHC 33.8 RDW 12.5 RDW Differential 41.3 Plt Count 427 MPV 9.8 Immature Gran % (Auto) 0.300 Neut % (Auto) 82.1 H Lymph % (Auto) 9.6 L [place] % (Auto) 7.5 Eos % (Auto) 0.1 Baso % (Auto) 0.4 Absolute Neuts (auto) 6.1 Absolute Lymphs (auto) 0.72 L Total Counted Not Reportable Specimen Type Sample Site pH Bicarbonate Actual POC Total CO2 Base Excess O2 Saturation ABG pCO2 ABG pO2 Sebastián Test O2 Delivery Device Blood Gas Notified Whom Blood Gas Notified Time Sodium Cancelled Potassium Cancelled Chloride Cancelled Carbon Dioxide Cancelled Anion Gap Cancelled BUN Cancelled Creatinine Cancelled Estim Creat Clear Calc Cancelled Est GFR (MDRD) Af Amer Cancelled Est GFR (MDRD) Non-Af Cancelled BUN/Creatinine Ratio Cancelled Glucose Cancelled Hemoglobin A1c Calcium Cancelled Magnesium Urine Color Urine Clarity Urine pH Ur Specific [place] Urine Protein Urine Glucose (UA) Urine Ketones Urine Occult Blood Urine Nitrite Urine Bilirubin Urine Urobilinogen Ur Leukocyte Esterase Urine RBC Urine WBC Ur Squamous Epith Cells Urine Bacteria Hyaline Casts Urine Mucus Acetone Level SMALL H 10/08/18 10/08/18 10/08/18 12:41 12:59 13:01 WBC RBC Hgb Hct MCV MCH MCHC RDW RDW Differential Plt Count MPV Immature Gran % (Auto) Neut % (Auto) Lymph % (Auto) [place] % (Auto) Eos % (Auto) Baso % (Auto) Absolute Neuts (auto) Absolute Lymphs (auto) Total Counted Specimen Type ART Sample Site R Radial pH 7.28 L Bicarbonate Actual 13.9 L POC Total CO2 15 Base Excess -13 L O2 Saturation 96 ABG pCO2 29.4 L ABG pO2 93 Sebastián Test POS O2 Delivery Device Room Air Blood Gas Notified Whom ED Blood Gas Notified Time 1250 Sodium Potassium Chloride Carbon Dioxide Anion Gap BUN Creatinine Estim Creat Clear Calc Est GFR (MDRD) Af Amer Est GFR (MDRD) Non-Af BUN/Creatinine Ratio Glucose Hemoglobin A1c 9.8 H Calcium Magnesium Urine Color Yellow Urine Clarity Sl. Cloudy Urine pH 5.0 Ur Specific [place] 1.025 Urine Protein 15 H Urine Glucose (UA) 1000 H Urine Ketones 150 H Urine Occult Blood Negative Urine Nitrite Negative Urine Bilirubin Negative Urine Urobilinogen Normal Ur Leukocyte Esterase Negative Urine RBC 0 SEEN Urine WBC 0 SEEN Ur Squamous Epith Cells 0 SEEN Urine Bacteria 0 SEEN Hyaline Casts 0-5 SEEN Urine Mucus 0 SEEN Acetone Level 10/08/18 10/08/18 10/08/18 13:15 18:45 22:50 WBC RBC Hgb Hct MCV MCH MCHC RDW RDW Differential Plt Count MPV Immature Gran % (Auto) Neut % (Auto) Lymph % (Auto) [place] % (Auto) Eos % (Auto) Baso % (Auto) Absolute Neuts (auto) Absolute Lymphs (auto) Total Counted Specimen Type Sample Site pH Bicarbonate Actual POC Total CO2 Base Excess O2 Saturation ABG pCO2 ABG pO2 Sebastián Test O2 Delivery Device Blood Gas Notified Whom Blood Gas Notified Time Sodium 133 L 140 138 Potassium 4.5 3.9 3.1 L Chloride 100 106 107 Carbon Dioxide 19.0 L 25.0 24.0 Anion Gap 14 9 7 BUN 23 H 17 15 Creatinine 1.21 0.95 0.81 Estim Creat Clear Calc 73.15 92.96 109.03 Est GFR (MDRD) Af Amer 80 106 127 Est GFR (MDRD) Non-Af 66 88 105 BUN/Creatinine Ratio 19.0 18.0 18.5 Glucose 281 H 93 121 H Hemoglobin A1c Calcium 9.1 8.8 8.2 L Magnesium Urine Color Urine Clarity Urine pH Ur Specific [place] Urine Protein Urine Glucose (UA) Urine Ketones Urine Occult Blood Urine Nitrite Urine Bilirubin Urine Urobilinogen Ur Leukocyte Esterase Urine RBC Urine WBC Ur Squamous Epith Cells Urine Bacteria Hyaline Casts Urine Mucus Acetone Level 10/09/18 10/09/18 10/09/18 05:20 05:20 05:20 WBC 4.4 RBC 4.08 L Hgb 12.6 L Hct 38.0 L MCV 93.1 MCH 30.9 MCHC 33.2 RDW 12.5 RDW Differential 41.7 Plt Count 304 MPV 9.6 Immature Gran % (Auto) 0.000 Neut % (Auto) 56.4 Lymph % (Auto) 25.7 [place] % (Auto) 14.2 H Eos % (Auto) 3.2 Baso % (Auto) 0.5 Absolute Neuts (auto) 2.5 Absolute Lymphs (auto) 1.12 Total Counted Not Reportable Specimen Type Sample Site pH Bicarbonate Actual POC Total CO2 Base Excess O2 Saturation ABG pCO2 ABG pO2 Sebastián Test O2 Delivery Device Blood Gas Notified Whom Blood Gas Notified Time Sodium 140 Potassium 3.5 Chloride 108 H Carbon Dioxide 23.0 Anion Gap 9 BUN 13 Creatinine 0.78 Estim Creat Clear Calc 113.22 Est GFR (MDRD) Af Amer 134 Est GFR (MDRD) Non-Af 111 BUN/Creatinine Ratio 16.8 Glucose 211 H Hemoglobin A1c Calcium 7.7 L Magnesium 1.9 Urine Color Urine Clarity Urine pH Ur Specific [place] Urine Protein Urine Glucose (UA) Urine Ketones Urine Occult Blood Urine Nitrite Urine Bilirubin Urine Urobilinogen Ur Leukocyte Esterase Urine RBC Urine WBC Ur Squamous Epith Cells Urine Bacteria Hyaline Casts Urine Mucus Acetone Level POC Glucose 10/09/18 10/09/18 10/08/18 06:56 00:02 22:50 POC Glucose 188 H 100 120 H 10/08/18 10/08/18 10/08/18 21:31 20:15 18:54 POC Glucose 148 H 135 H 87 10/08/18 10/08/18 10/08/18 18:11 17:10 15:42 POC Glucose 90 91 146 H 10/08/18 10/08/18 14:37 12:17 POC Glucose 225 H 347 H Discharge Activity: May Not Drive - for 1-2 days Call your doctor if you observe: Fever of 101 or Higher, Inability to urinate, Shortness of breath, Fainting spells, Swelling in the ankles, Chest pain, Increased palpitations (irregular heartbeat) Home Medications: Medications to take at Discharge Aspirin [Aspirin, Baby] 81 mg PO DAILY@0800 08/22/14 insulin lispro (U- 100) 100 unit/mL subcutaneous pen See Rx Instructions SC TID #30 ml 06/17/18 Levothyroxine [Synthroid] 137 mcg PO DAILY 10/08/18 Insulin Glargine,Hum.rec.anlog [Basaglar Kwikpen U-100] 45 unit SC BID #0 10/09/18 Primary Care Physician: Johnathan Wheeler III, MD [Primary Care Provider] - Please follow up with your Primary Care Physician in: in 1-2 week Medical Necessity - Tobacco Use Smoking Status: Never smoker Tobacco Use: Non-smoker Meaningful Use Info Meaningful Use Diagnoses (Choose all that apply): None applicable Code Visit Inpatient E&M: 80183 Disch Hosp
[2018-10-09] MEDS: Insulin Lispro 100 UNIT/ML INSULN.PEN 32 UNIT SC (12:26)
[2018-10-09 12:30] LABS: Bedside Glucose 350 mg/dL (70-110)
[2018-10-09 12:49] LABS: Potassium 4.6 mmol/L (3.5-5.1)
[2018-10-09 14:21] LABS: Bedside Glucose 144 mg/dL (70-110)
== END 2018-10-09 14:34 | disposition home or self-care (01) | DRG 420 ==
LOC: ED 15:09 → ICU 10-09 07:05
PROVIDERS: Admitting Provider Hospitalist; Emergency Provider Emergency Medicine; Family Provider Family Medicine; PCP Family Medicine; Referring Provider Hospitalist; Visit Provider Internal Medicine
DX: E10.10 Type 1 diabetes mellitus with ketoacidosis without coma (principal); E03.9 Hypothyroidism, unspecified; Z79.4 Long term (current) use of insulin
CPT/HCPCS: 36600; 80048; 81001; 82009; 82803; 82962; 83036; 83735; 84132; 85025; 97802; 99284; J7030; A4216; J7799

== ENCOUNTER → 2020-03-09 09:43 | Outpatient (CLI) | payer OTHER, SELFPAY ==
[2020-03-09 08:43] VITALS: BMI 26.2
[2020-03-09 13:01] LABS: Microalbumin,Random Urine 22.3 mg/L (NO RANGE EST.); Microalbumin:Creatinine Ratio 11.9 mg/g CRE (<30 mg/g CRE)
[2020-03-09 13:15] LABS: Vitamin D,25 Hydroxy 23.1 ng/mL
[2020-03-09 13:19] LABS: AST(SGOT) 18 U/L (15-37); Alanine Aminotransfer ALT/SGPT 28 U/L (16-61); Albumin, Serum 3.7 g/dL (3.2-5.0); Alkaline Phosphatase 97 U/L (45-117); Anion Gap 5 (5-15); BUN 17 mg/dL (7-18); Calcium,Total 9.3 mg/dL (8.5-10.1); Chloride 109 mmol/L (98-107); Cholesterol 218 mg/dL (200); Creatinine, Serum 0.81 mg/dL (0.70-1.30); EST Glomerular Filtration Rate 105 mL/min (>60); Est Glom Filt Rate - Afr Amer 127 mL/min (>60); Globulin 3.6 g/dL (2.2-4.2); Glucose 48 mg/dL (74-106); High Density Lipoprotein 48 mg/dL; Potassium 4.1 mmol/L (3.5-5.1); Protein, Total 7.3 g/dL (6.4-8.2); Sodium Level 143 mmol/L (136-145); Thyroid Stim Hormone (TSH) 9.08 uIU/mL (0.358-3.74); Triglycerides 142 mg/dL; Very Low Density Lipoprotein 28 mg/dL (5-40)
[2020-03-09 13:34] LABS: PTHIN 15.7 pg/mL (18.4-80.1)
== END ==
PROVIDERS: PCP Family Medicine; Referring Provider Internal Medicine Endocrinology, Diabetes & Metabolism; Visit Provider Internal Medicine Endocrinology, Diabetes & Metabolism
DX: E10.9 Type 1 diabetes mellitus without complications (principal); E03.9 Hypothyroidism, unspecified; E21.3 Hyperparathyroidism, unspecified; I25.10 Atherosclerotic heart disease of native coronary artery without angina pectoris; E55.9 Vitamin D deficiency, unspecified
CPT/HCPCS: 36415; 80053; 80061; 82043; 82306; 82570; 83970; 84439; 84443

== ENCOUNTER → 2020-06-06 09:02 | Outpatient (CLI) | payer OTHER, SELFPAY ==
[2020-06-06 08:27] VITALS: BMI 27.4
[2020-06-06 12:41] LABS: ALB/GLOB Ratio 1.1 RATIO (0.9-2.4); AST(SGOT) 19 U/L (15-37); Alanine Aminotransfer ALT/SGPT 27 U/L (16-61); Albumin, Serum 3.5 g/dL (3.2-5.0); Alkaline Phosphatase 112 U/L (45-117); Anion Gap 5 (5-15); BUN 15 mg/dL (7-18); BUN/Creat Ratio 17.7 RATIO (10-20); Calcium,Total 8.6 mg/dL (8.5-10.1); Chloride 105 mmol/L (98-107); Cholesterol 202 mg/dL (200); Creatinine, Serum 0.85 mg/dL (0.70-1.30); EST Glomerular Filtration Rate 100 mL/min (>60); Est Glom Filt Rate - Afr Amer 120 mL/min (>60); Globulin 3.3 g/dL (2.2-4.2); Glucose 184 mg/dL (74-106); High Density Lipoprotein 46 mg/dL; Potassium 4.3 mmol/L (3.5-5.1); Protein, Total 6.8 g/dL (6.4-8.2); Sodium Level 140 mmol/L (136-145); T4 Free Direct 1.21 ng/dL (0.76-1.46); Thyroid Stim Hormone (TSH) 6.32 uIU/mL (0.358-3.74); Triglycerides 141 mg/dL; Very Low Density Lipoprotein 28 mg/dL (5-40)
== END ==
PROVIDERS: PCP Family Medicine; Referring Provider Internal Medicine Endocrinology, Diabetes & Metabolism; Visit Provider Internal Medicine Endocrinology, Diabetes & Metabolism
DX: E03.9 Hypothyroidism, unspecified (principal); E10.9 Type 1 diabetes mellitus without complications; E78.2 Mixed hyperlipidemia
CPT/HCPCS: 36415; 80053; 80061; 84439; 84443

== ENCOUNTER → 2021-02-01 16:59 | Outpatient (CLI) | payer OTHER, SELFPAY | PROVIDERS: PCP Family Medicine; Visit Provider Physician Assistant | DX: L03.312 Cellulitis of back [any part except buttock and flank] (principal) | CPT/HCPCS: 87070; 87205 ==

== ENCOUNTER → 2022-03-13 | Outpatient (CLI) | payer OTHER, SELFPAY ==
[2022-03-13 15:41] LABS: BNP,B-Type NATRIURETIC PEPTIDE 34.9 pg/mL (0-100)
[2022-03-13 15:45] LABS: ALB/GLOB Ratio 1.1 RATIO (0.9-2.4); AST(SGOT) 15 U/L (15-37); Alanine Aminotransfer ALT/SGPT 22 U/L (16-61); Albumin, Serum 3.7 g/dL (3.2-5.0); Alkaline Phosphatase 94 U/L (45-117); Anion Gap 4 (5-15); BUN 14 mg/dL (7-18); BUN/Creat Ratio 17.9 RATIO (10-20); Calcium,Total 9.2 mg/dL (8.5-10.1); Chloride 110 mmol/L (98-107); Creatinine, Serum 0.78 mg/dL (0.70-1.30); EST Glomerular Filtration Rate 108 mL/min (>60); Est Glom Filt Rate - Afr Amer 131 mL/min (>60); Globulin 3.5 g/dL (2.2-4.2); Glucose 157 mg/dL (74-106); Potassium 4.3 mmol/L (3.5-5.1); Protein, Total 7.2 g/dL (6.4-8.2); Sodium Level 141 mmol/L (136-145)
== END | disposition home or self-care (01) ==
LOC: LAB 14:21
PROVIDERS: Nurse Practitioner Family; Visit Provider Internal Medicine Cardiovascular Disease
DX: I10 Essential (primary) hypertension (principal); E11.9 Type 2 diabetes mellitus without complications; R06.09 Other forms of dyspnea
CPT/HCPCS: 36415; 80053; 83880

== ENCOUNTER → 2023-07-11 | Outpatient (CLI) | payer OTHER, SELFPAY ==
--- OUTSIDE RECORDS SUMMARY | 2023-07-11 11:55 | XMS RPT_ITS | CCD ---
Author Name Unknown Address [id number] [place] [address] Organization [facility] Results Test Name Value Interpretation Reference Range Facil ity Procedures Date Procedure Procedure Detail Performing Clinician Start: 03-08-2019 Electrocardiogram Clinical Note 08-04-2020 Note Date & Type Note Facility 08-04-2020 Note Patient Outreach ([facility]) SHERRY ONTIVEROS ([id number]) 1965 M Date Time Provider Department 08/04/20 RYAN AIKEN During your visit today, we recorded the following information about you: Allergies As of Date: 08/04/2020 (No Known Allergies) Date Reviewed: 08/03/2019 Reviewed by: Jane Wallace Ma - Fully Assessed Order(s):SARS-COVID VACCINE 1ST DOSE APPT [[id number]] Order #: [id number] FUTURE Prescriptions as of 08/04/2020 Sig: HUMALOG KWIKPEN (U-100) INSUL* INJECT 44 UNITS SUBCUTANEOUSL* INSULIN GLARGINE (U-100) 100 * PLEASE SPECIFY DIRECTIONS, RE* NOVOLOG FLEXPEN U-100 INSULIN* Inject 10 Units subcutaneousl* PEN NEEDLE, DIABETIC 31 GAUGE* 100 Each three times daily. U* COMPOUNDED PRESCRIPTION Tadalafil Devan 20 mg- Allow* Patient not taking: Reported on 04/26/2019 TADALAFIL 20 MG TABLET Take 1 tablet by mouth as nee* TRIAMCINOLONE ACETONIDE 0.1 %* Apply 1 application to affect* Patient not taking: Reported on 11/26/2018 LEVOTHYROXINE 137 MCG TABLET Take 1 tablet by mouth daily * LEVOTHYROXINE 150 MCG TABLET Take 1 tablet by mouth once d* Patient not taking: Reported on 04/26/2019 LEVOTHYROXINE 300 MCG TABLET Take 1 tablet by mouth daily * Patient not taking: Reported on 04/26/2019 ATORVASTATIN 20 MG TABLET Take 1 tablet by mouth daily * Patient not taking: Reported on 11/26/2018 LEVOTHYROXINE 150 MCG CAPSULE Take by mouth. 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 Hypothyroidism [E03.9] 02/19/2013 More... Hyperlipidemia LDL goal <70 [E78.5] 02/19/2013 More... Encounter Status:Closed by [employer] on 08/07/20 [facility] Summary Purpose Family History No Family History Records FoundNo Family History Records FoundNo Family History Records FoundNo Family History Records Found Advance Directives No Advanced Directives Records FoundNo Advanced Directives Records FoundNo Advanced Directives Records FoundNo Advanced Directives Records Found Additional Source Comments (unrecognized sect ion and content) No Status Records FoundNo Status Records FoundNo Status Records FoundNo Status Records Found INFORMATION SOURCE (unrecogn ized section and content) DATE CREATED AUTHOR AUTHOR'S ORGANIZ ATION 03/09/2019 [facility] DATE CREATED AUTHOR AUTHOR'S ORGANIZ ATION 12/26/2019 [facility] DATE CREATED AUTHOR AUTHOR'S ORGANIZ ATION 06/26/2021 [facility] FOR RECORDS PERTAINING TO PATIENTS WHO ARE OR HAVE BEEN ENROLLED IN A CHEMICAL DEPENDENCY/SUBSTANCEABUSE PROGRAM, SOME INFORMATION MAY BE OMITTED. This clinical summary was aggregated from multiple sources. Caution should be exercised in using it in the provision of clinical care. This summary normalizes information from multiple sources, and as a consequence, information in this document may materially change the coding, format and clinical context of patient data. In addition, data may be omitted in some cases. CLINICAL DECISIONS SHOULD BE BASED ON THE PRIMARY CLINICAL RECORDS. [facility] provides no warranty or guarantee of the accuracy or completeness of information in this document.
[2023-07-11 13:16] LABS: AST(SGOT) 20 U/L (15-37); Alanine Aminotransfer ALT/SGPT 43 U/L (16-61); Albumin, Serum 3.5 g/dL (3.2-5.0); Alkaline Phosphatase 118 U/L (45-117); Anion Gap 4 (5-15); BUN 18 mg/dL (7-18); BUN/Creat Ratio 22.3 RATIO (10-20); Calcium,Total 9.1 mg/dL (8.5-10.1); Chloride 111 mmol/L (98-107); Cholesterol 218 mg/dL (200); Creatinine, Serum 0.81 mg/dL (0.70-1.30); EST Glomerular Filtration Rate 104 mL/min (>60); Est Glom Filt Rate - Afr Amer 126 mL/min (>60); Globulin 3.5 g/dL (2.2-4.2); Glucose 80 mg/dL (74-106); High Density Lipoprotein 49 mg/dL; Sodium Level 142 mmol/L (136-145); T4 Free Direct 1.15 ng/dL (0.76-1.46); Thyroid Stim Hormone (TSH) 0.39 uIU/mL (0.358-3.74); Triglycerides 147 mg/dL; Very Low Density Lipoprotein 29 mg/dL (5-40)
[2023-07-11 13:30] LABS: Microalbumin,Random Urine 19.9 mg/L (NO RANGE EST.); Microalbumin:Creatinine Ratio 8.8 mg/g CRE (<30 mg/g CRE)
== END | disposition home or self-care (01) ==
LOC: LAB 11:39
PROVIDERS: Referring Provider Nurse Practitioner Family; Visit Provider Nurse Practitioner Family
DX: I10 Essential (primary) hypertension (principal); E10.9 Type 1 diabetes mellitus without complications; E03.9 Hypothyroidism, unspecified; E78.2 Mixed hyperlipidemia; E55.9 Vitamin D deficiency, unspecified
CPT/HCPCS: 36415; 80053; 80061; 82043; 82306; 82570; 84439; 84443

== ENCOUNTER → 2023-08-13 | Outpatient (CLI) | payer OTHER, SELFPAY ==
--- NOTE | 2023-08-13 10:43 | RAD_ITS ---
EXAM: XR CHEST, 2 VIEWS CLINICAL INDICATION: cough TECHNIQUE: Frontal and lateral views of the chest. COMPARISON: No relevant prior studies available. FINDINGS: LUNGS AND PLEURAL SPACES: Normal. No consolidation or edema. No pneumothorax. No effusion. HEART: Normal heart size. MEDIASTINUM: No mediastinal or hilar mass. BONES/JOINTS: No acute abnormality. RAD/Chest PA and Lateral IMPRESSION: No acute cardiopulmonary disease. Electronically Signed: Norris Agrawal MD at 11:00 EDT ,
--- OUTSIDE RECORDS SUMMARY | 2023-08-13 13:45 | XMS RPT_ITS | CCD ---
Author Name Unknown Address [facility] [place] [address] Organization [facility] Results Test Name Value Interpretation Reference Range Facil ity Procedures Date Procedure Procedure Detail Performing Clinician Start: 03-08-2019 Electrocardiogram Clinical Note 08-04-2020 Note Date & Type Note Facility 08-04-2020 Note Patient Outreach ([facility]) SHERRY ONTIVEROS ([id number]) 1965 M Date Time Provider Department 08/04/20 RYAN AIKEN During your visit today, we recorded the following information about you: Allergies As of Date: 08/04/2020 (No Known Allergies) Date Reviewed: 08/03/2019 Reviewed by: Jane Wallace Ma - Fully Assessed Order(s):SARS-COVID VACCINE 1ST DOSE APPT [[id number]] Order #: [id number] FUTURE Prescriptions as of 08/04/2020 Sig: HUMALOG [...] <70 [E78.5] 02/19/2013 More... Encounter Status:Closed by [employer] on 08/07/20 [facility] Summary Purpose Family History No [...] DATE CREATED AUTHOR AUTHOR'S ORGANIZ ATION 03/09/2019 [facility] DATE CREATED AUTHOR AUTHOR'S ORGANIZ ATION 12/26/2019 [facility] DATE CREATED AUTHOR AUTHOR'S ORGANIZ ATION 06/26/2021 [facility] FOR RECORDS PERTAINING TO PATIENTS [...] BE BASED ON THE PRIMARY CLINICAL RECORDS. [facility] provides no warranty or guarantee of the accuracy or completeness of information in this document.
== END | disposition home or self-care (01) ==
LOC: MTRAD 10:29
PROVIDERS: Referring Provider Physician Assistant; Visit Provider Physician Assistant
DX: R05.9 Cough, unspecified (principal)
CPT/HCPCS: 71046

== ENCOUNTER 2023-08-15 09:16 | Inpatient (IN) | payer OTHER, SELFPAY ==
[2023-08-15] VITALS (17 sets, daily range): BP systolic 106–158; BP diastolic 50–87; PULSE 74–109; RESP 15–22; TEMP 35.4–36.8; O2SAT 94–97; BMI 23.3
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
[2023-08-15 10:33] LABS: Absolute Lymphocyte Count 1.21 X10^3/uL (0.83-4.51); Absolute Neutrophil Count 8.5 X10^3/uL (2.0-7.7); Basophil# 0.04 X10^3/uL; Basophil% 0.4 % (0-1); Hematocrit 45.6 % (40-54); Lymphocyte # 1.21 X10^3/ul (0.83-4.51); Lymphocyte % 11.6 % (19-41); Mean Corp Hgb Conc 32.9 g/dL (32-36); Mean Corpuscular Hgb 30.4 pg (27.0-32.0); Mean Corpuscular Volume 92.5 fL (80-94); Mean Platelet Vol. 9.4 fl (6.2-12.0); Monocyte# 0.63 X10^3/uL; NRBC Flagged by Analyzer 0 % (0-5); Neutrophil # 8.53 X10^3/uL (2.7-7.7); Neutrophil % 81.8 % (47-70); POSITIVE MORPHOLOGY YES; Platelet Count 334 K/mm3 (150-450); RBC Distribution Width SD 41.2 fl (35.1-43.9); Red Blood Count 4.93 M/mm3 (4.6-6.2); White Blood Count 10.4 K/mm3 (4.4-11.0)
[2023-08-15] MEDS: Ondansetron 4 MG/2 ML Vial IV ×2 (10:41→12:00)
[2023-08-15] MEDS: 0.9% Normal Saline (1000mL) 1,000 ML 1000 ML IV (10:41)
[2023-08-15 10:47] LABS: ALB/GLOB Ratio 0.9 RATIO (0.9-2.4); AST(SGOT) 20 U/L (15-37); Alanine Aminotransfer ALT/SGPT 44 U/L (16-61); Albumin, Serum 3.8 g/dL (3.2-5.0); Alkaline Phosphatase 140 U/L (45-117); Anion Gap 20 (5-15); BUN 31 mg/dL (7-18); Chloride 104 mmol/L (98-107); Creatinine, Serum 1.63 mg/dL (0.70-1.30); EST Glomerular Filtration Rate 46 mL/min (>60); Est Glom Filt Rate - Afr Amer 56 mL/min (>60); Estimated Creatinine Clearance 51.97 ml/min; Globulin 4.3 g/dL (2.2-4.2); Glucose 358 mg/dL (74-106); Lipase 80 U/L (13-75); Partial Thromboplast Time 31.2 Seconds (24.1-36.2); Potassium 4.4 mmol/L (3.5-5.1); Protein, Total 8.1 g/dL (6.4-8.2); Prothrombin Time (Protime)PT. 12.8 SECONDS (11.7-14.9); Sodium Level 137 mmol/L (136-145)
[2023-08-15 10:49] LABS: Differential Indicated SCAN CRITERIA MET
[2023-08-15 11:46] LABS: Reactive Lymphocyte RARE
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
--- NOTE | 2023-08-15 12:09 | CT_ITS ---
STUDY: CT CHEST, ABDOMEN T PELVIS WITHOUT CONTRAST REASON FOR EXAM: Male, 57 years old. PNA and nausea and vomiting RADIATION DOSAGE (If Supplied By Facility): CTDIvol = ( 11.51 ) mGy, DLP = ( 1058.53 ) mGycm TECHNIQUE: Transaxial imaging was performed without the administration of intravenous contrast material. Multiplanar coronal and sagittal images were reformatted. Individualized dose optimization techniques were used for this CT. COMPARISON: Chest x-ray August 13, 2023. FINDINGS: CHEST There are granulomatous calcifications in the right upper and lower lung. There is no focal infiltrate. There is no demonstrated pleural abnormality. Normal heart and pericardium. There are no calcifications of the coronary arteries. Normal mediastinum. Normal hilar regions. Normal unenhanced pulmonary arteries. Normal aorta arch and descending thoracic aorta. There is an increased kyphosis of the thoracic spine. There is mild degenerative change of the spine. ABDOMEN Normal liver. There are multiple gallstones. Normal spleen. Normal pancreas. Normal bilateral adrenal glands. There is a 0.4 cm stone of the right kidney. There is 0.2 cm stone of the left kidney. Normal visualized stomach. Normal small intestine. Normal colon. The appendix is visualized and appears normal. Normal abdominal aorta. Normal inferior vena cava. Normal retroperitoneum. Normal abdominal wall. There is degenerative change at L5-S1. PELVIS Normal urinary bladder. Normal visualized small intestine. Normal visualized colon. There is no pelvic fluid. There is no pelvic lymphadenopathy or mass lesion. Normal visualized pelvic arteries. Normal abdominal wall. Normal osseous structures. CT/CT Chest, Abd, Pelvis WO Cont IMPRESSION: Multiple gallstones. No biliary dilation. Bilateral renal stones. No hydronephrosis. No focal infiltrate or edema in the lungs. Granulomatous calcifications in the right lung. Electronically Signed: Dwain Reynolds MD at 13:52 EDT ,
[2023-08-15 12:19] LABS: Bedside Glucose 250 mg/dL (74-106)
[2023-08-15 12:20] LABS: Magnesium 2.7 mg/dL (1.6-2.6)
[2023-08-15 12:40] LABS: Blood Gas Specimen Type VEN; O2 Delivery Device Not entered; SITE Not entered; VBG BASE EXCESS -13 mmol/L (-1.0-3.5); VBG Bicarbonate 15 mmol/L (22-26); VBG PO2 45 mmHg (25-40); VBG SO2 75 % (50-70); VBG TCO2 16 mmol/L (23-33); VBG pCO2 32.9 mmHg (41-51); VBG pH 7.26 (7.32-7.42)
[2023-08-15 12:45] LABS: Bacteria 0 SEEN /hpf (None Seen); Mucous, Urine 0 SEEN /hpf (<or=2+); Red Blood Cells-Urine 0 SEEN /hpf (0-5)
[2023-08-15 13:01] LABS: Color, Urine Yellow (Yellow); Glucose, Dipstick Normal (Normal); Ketone-Dipstick 5 mg/dl (Negative); Leukocyte Esterase-Dipstick 25 /ul (Negative); Nitrite-Dipstick Negative (Negative); Occult Blood-Urine Negative /ul (Negative); Protein-Dipstick 15 mg/dl (Negative); Urine Bilirubin Dipstick Negative (Negative); Urine Clarity Clear (Clear); Urine Urobilinogen Normal (Normal)
[2023-08-15 13:08] LABS: Squamous Epithelial Cells - UA 0-5 SEEN /hpf (0-5); White Blood Cells 0-5 SEEN /hpf (0-5)
[2023-08-15] MEDS: Insulin Lispro 100 UNIT in 0.9% Normal Saline (100mL Bag) 99 ML 7.6 UNIT CONT INF (13:18)
--- NOTE | 2023-08-15 13:59 | ED.RN ---
called report to Jessika in ICU
[2023-08-15 14:24] LABS: Reflex Lactate? Y
[2023-08-15] MEDS: Dext 5%-0.45% NS 1,000 ML 150 ML IV ×2 (14:30→20:33)
[2023-08-15] MEDS: Pantoprazole Sodium 40 MG in 0.9% Normal Saline (100mL MB+) 100 ML 330 MG IV (15:02)
[2023-08-15] MEDS: Ampicillin/Sulbactam 3 GM in 0.9% Normal Saline (100mL MB+) 100 ML IV ×2 (15:12→22:34)
[2023-08-15] MEDS: Azithromycin 500 MG in Dextrose 5%-Water (250mL Bag) 250 ML 250 MG IV (15:39)
[2023-08-15 16:10] LABS: Bedside Glucose 114 mg/dL (74-106)
[2023-08-15 16:10] LABS: Bedside Glucose 148 mg/dL (74-106)
[2023-08-15 16:11] LABS: M R Staph aureus DNA By PCR Negative (Negative); Probe Check PASS; Specimen Processing Control PASS
[2023-08-15 16:19] LABS: Hemoglobin A1c 10.2 % (3.8-5.6)
[2023-08-15 16:22] LABS: Troponin-I HS 11 pg/mL (3.0-78.0)
[2023-08-15 16:54] LABS: Bedside Glucose 110 mg/dL (74-106)
[2023-08-15 16:57] LABS: Anion Gap 8 (5-15); BUN 27 mg/dL (7-18); Calcium,Total 8.7 mg/dL (8.5-10.1); Chloride 113 mmol/L (98-107); Creatinine, Serum 1.35 mg/dL (0.70-1.30); EST Glomerular Filtration Rate 57 mL/min (>60); Est Glom Filt Rate - Afr Amer 69 mL/min (>60); Estimated Creatinine Clearance 62.75 ml/min; Glucose 125 mg/dL (74-106); Magnesium 2.4 mg/dL (1.6-2.6); Phosphorus 1.6 mg/dL (2.5-4.9); Potassium 4.6 mmol/L (3.5-5.1); Sodium Level 141 mmol/L (136-145)
[2023-08-15 17:50] LABS: Bedside Glucose 161 mg/dL (74-106)
[2023-08-15 18:13] LABS: Troponin-I HS 10 pg/mL (3.0-78.0)
[2023-08-15 18:50] LABS: Bedside Glucose 115 mg/dL (74-106)
[2023-08-15 21:04] LABS: Anion Gap 6 (5-15); BUN 19 mg/dL (7-18); BUN/Creat Ratio 17.4 RATIO (10-20); Calcium,Total 8.1 mg/dL (8.5-10.1); Chloride 114 mmol/L (98-107); Creatinine, Serum 1.09 mg/dL (0.70-1.30); EST Glomerular Filtration Rate 73 mL/min (>60); Est Glom Filt Rate - Afr Amer 89 mL/min (>60); Estimated Creatinine Clearance 77.72 ml/min; Glucose 84 mg/dL (74-106); Magnesium 2.3 mg/dL (1.6-2.6); Phosphorus 1.4 mg/dL (2.5-4.9); Potassium 3.3 mmol/L (3.5-5.1); Sodium Level 142 mmol/L (136-145); Troponin-I HS 12 pg/mL (3.0-78.0)
[2023-08-15] MEDS: Potassium Chloride Oral Tablet 20 MEQ 60 MEQ PO (22:27)
[2023-08-15] MEDS: guaiFENesin 1,200 MG Tablet 1200 MG PO (22:27)
[2023-08-15 22:53] LABS: Bedside Glucose 66 mg/dL (74-106)
[2023-08-15 22:53] LABS: Bedside Glucose 70 mg/dL (74-106)
[2023-08-15 22:53] LABS: Bedside Glucose 94 mg/dL (74-106)
[2023-08-15 22:53] LABS: Bedside Glucose 71 mg/dL (74-106)
[2023-08-16] VITALS (12 sets, daily range): BP systolic 97–131; BP diastolic 50–74; PULSE 61–77; RESP 16–20; TEMP 36.6–36.9; O2SAT 94–98; BMI 23.9
[2023-08-16] MEDS: Dext 5%-0.45% NS 1,000 ML 150 ML IV (02:35)
[2023-08-16 02:54] LABS: Bedside Glucose 86 mg/dL (74-106)
[2023-08-16 02:54] LABS: Bedside Glucose 73 mg/dL (74-106)
[2023-08-16 02:54] LABS: Bedside Glucose 106 mg/dL (74-106)
[2023-08-16 03:52] LABS: Bedside Glucose 109 mg/dL (74-106)
[2023-08-16 04:18] LABS: Absolute Lymphocyte Count 1.39 X10^3/uL (0.83-4.51); Absolute Neutrophil Count 4.6 X10^3/uL (2.0-7.7); Basophil# 0.02 X10^3/uL; Basophil% 0.3 % (0-1); Eosinophil# 0.09 X10^3/uL; Eosinophils% 1.3 % (0-5); Hematocrit 35.8 % (40-54); Hemoglobin 11.8 g/dL (13.0-16.5); Lymphocyte # 1.39 X10^3/ul (0.83-4.51); Lymphocyte % 20.4 % (19-41); Mean Corpuscular Hgb 30.3 pg (27.0-32.0); Mean Corpuscular Volume 91.8 fL (80-94); Mean Platelet Vol. 9.7 fl (6.2-12.0); Monocyte# 0.74 X10^3/uL; Monocyte% 10.9 % (0-10); NRBC Flagged by Analyzer 0 % (0-5); Neutrophil # 4.55 X10^3/uL (2.7-7.7); Neutrophil % 66.8 % (47-70); POSITIVE MORPHOLOGY YES; Platelet Count 271 K/mm3 (150-450); RBC Distribution Width CV 12.1 % (11.6-14.6); RBC Distribution Width SD 40.7 fl (35.1-43.9); White Blood Count 6.8 K/mm3 (4.4-11.0)
[2023-08-16 04:20] LABS: Differential Indicated SCAN CRITERIA MET
[2023-08-16] MEDS: Ampicillin/Sulbactam 3 GM in 0.9% Normal Saline (100mL MB+) 100 ML IV (04:34)
[2023-08-16] MEDS: Levothyroxine 150 MCG Tablet PO (04:34)
[2023-08-16 04:39] LABS: Magnesium 2.1 mg/dL (1.6-2.6); Phosphorus 1.5 mg/dL (2.5-4.9)
[2023-08-16 04:44] LABS: Anion Gap 7 (5-15); BUN 15 mg/dL (7-18); BUN/Creat Ratio 15.4 RATIO (10-20); Calcium,Total 7.9 mg/dL (8.5-10.1); Chloride 113 mmol/L (98-107); Creatinine, Serum 0.97 mg/dL (0.70-1.30); EST Glomerular Filtration Rate 84 mL/min (>60); Est Glom Filt Rate - Afr Amer 102 mL/min (>60); Estimated Creatinine Clearance 87.33 ml/min; Glucose 151 mg/dL (74-106); Magnesium 2.2 mg/dL (1.6-2.6); Phosphorus 1.5 mg/dL (2.5-4.9); Potassium 3.8 mmol/L (3.5-5.1); Sodium Level 142 mmol/L (136-145); Thyroid Stim Hormone (TSH) 0.27 uIU/mL (0.358-3.74)
[2023-08-16 05:54] LABS: Atypical Lymphocyte 1+ %
[2023-08-16 06:54] LABS: Bedside Glucose 118 mg/dL (74-106)
[2023-08-16 06:54] LABS: Bedside Glucose 185 mg/dL (74-106)
[2023-08-16 06:54] LABS: Bedside Glucose 151 mg/dL (74-106)
[2023-08-16 06:54] LABS: Bedside Glucose 125 mg/dL (74-106)
[2023-08-16 08:41] LABS: Bedside Glucose 74 mg/dL (74-106)
[2023-08-16] MEDS: Pantoprazole Sodium 40 MG in 0.9% Normal Saline (100mL MB+) 100 ML 330 MG IV (08:52)
[2023-08-16] MEDS: Enoxaparin 40 MG/0.4 ML Syringe SC (08:53)
[2023-08-16] MEDS: Insulin Glargine-YFGN 100 UNIT/ML Pen 15 UNIT SC (08:53)
[2023-08-16] MEDS: Influenza Virus Vac Quad 23-24 60 MCG/0.5 ML SYRINGE IM (09:00)
[2023-08-16] MEDS: guaiFENesin 1,200 MG Tablet 1200 MG PO (09:01)
--- NOTE | 2023-08-16 11:15 | CASEMGMT ---
RN CM Face to Face with patient for initial transition planning/care coordination assessment. RN CM introduced self and role at [facility]. Patient lying in bed, alert and oriented. Patient willing to participate in assessment and is able to answer all questions appropriately. Care providers, pharmacy, and demographics verified. 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 Patient states he is independent at home. Transportation: self, significant other DME/HHC: Patient has glucometer, insulin, and supplies at home. No previous HHC or SNF. Patient wishes to discharge home, denies need for home health at this time. Patient states he has no further needs or concerns at this time. CM to follow for discharge planning needs that may arise. Disposition Plan: Patient to discharge home with family support and follow-up plans in place. Lisbeth JAY, RN, CM
[2023-08-16] MEDS: Insulin Lispro 100 UNIT/ML INSULN.PEN SC ×2 (11:33→16:42)
[2023-08-16 11:52] LABS: Bedside Glucose 330 mg/dL (74-106)
[2023-08-16] MEDS: Sodium Phosphate/Na Biphos 21 MMOL in 0.9% Normal Saline (250mL Bag) 250 ML 84 MMOL IV (13:52)
[2023-08-16] MEDS: Na Biphos/Potassium Phosphate PACKET 1 PACKET PO (13:52)
--- NOTE | 2023-08-16 14:26 | DCINST_ITS ---
Discharge Instructions Diet Discharge Diet: - (Resume previous diet) Activity Discharge Activity: Return to Normal Activity Weight Bearing Status: Full weight bearing Follow Up Care Test Results: Test results from this visit will be discussed in further detail at your follow- up appointment, if applicable. Discharge Plan Admission Admit Date/Time: 08/15/23 11:45 Primary Reason for Your Visit: Diabetic ketoacidosis Attending Provider: Cayetano Nur Primary Care Provider: Care Physician,No Primary Consulting Providers: Roxi Olivo Discharge Orders/Prescriptions Prescriptions: Continued aspirin 81 MG tablet,chewable 81 mg PO DAILY@0800 insulin glargine [Lantus Solostar U-100 Insulin] 100 unit/mL (3 mL) insulin pen 15 unit subcut QHS insulin lispro [Humalog KwikPen Insulin] 100 unit/mL insulin pen See Protocol SC TID MDD 80 Protocol: 6. Sliding Scale Insulin Custom Condition: CARBS Dose/Route: Number of Units Condition: 3 Dose/Route: 1 Condition: ETC Dose/Route: ETC Protocol Text: Custom Sliding Scale PT TAKES 1 UNIT FOR EVERY 3 CARBS THREE TIMES A DAY Rx Instructions: PT TAKES 1 UNIT FOR EVERY 3 CARBS THREE TIMES A DAY cholecalciferol (vitamin D3) 1,250 mcg (50,000 unit) capsule 1,250 mcg PO MO levothyroxine 150 mcg tablet 150 mcg PO DAILY Qty: 90 0RF Discontinued amoxicillin-pot clavulanate 875-125 mg tablet 1 tab PO BID Qty: 20 0RF Referrals / Follow Up: Nithin Mcfarlane MD [Med Staff - Courtesy Staff] - Within 1 Month Aspen Scott [Non-Staff] - See Referral Note (Call clinic to establish yourself as a new patient for primary care) Care Physician,No Primary [Primary Care Provider] - Disposition Disposition (needs filled in before D/C Order can be placed): Home, Self Care
--- NOTE | 2023-08-16 14:31 | PCM.DC.SUM ---
Providers Date of Admission: 08/15/23 Date of Discharge: 08/16/23 Primary Care Physician: No Primary Care Phys Reason For Visit: DKA Diagnosis Discharge Diagnosis (1) Dehydration: Status: Acute Code(s): E86.0 - Dehydration (2) Nausea and vomiting: Status: Acute Code(s): R11.2 - Nausea with vomiting, unspecified (3) Diabetic ketoacidosis: Status: Acute Code(s): E11.10 - Type 2 diabetes mellitus with ketoacidosis without coma (4) Acute kidney injury: Status: Acute Code(s): N17.9 - Acute kidney failure, unspecified (5) Metabolic acidosis due to diabetes mellitus: Status: Acute Code(s): E11.10 - Type 2 diabetes mellitus with ketoacidosis without coma (6) Diarrhea: Status: Acute Code(s): R19.7 - Diarrhea, unspecified Plan 1. Diabetic ketoacidosis #2 intractable nausea and vomiting secondary to viral gastroenteritis #3 viral gastroenteritis-etiology unknown #4 human metapneumovirus respiratory infection #5 acute kidney injury secondary to intractable nausea and vomiting and DKA #6 uncontrolled type 1 diabetes mellitus #7 hypothyroidism Medications at Discharge Home Medications aspirin 81 mg chewable tablet 81 mg PO DAILY@0800 08/22/14 levothyroxine 150 mcg tablet 150 mcg PO DAILY #90 tabs 07/14/23 cholecalciferol (vitamin D3) 1,250 mcg (50,000 unit) capsule 1,250 mcg PO MO 08/15/23 insulin glargine 100 unit/mL (3 mL) subcutaneous pen (Lantus Solostar U-100 Insulin) 15 unit subcut QHS 08/15/23 insulin lispro 100 unit/mL subcutaneous pen (Humalog KwikPen (U-100) Insulin) See Protocol subcut TID 08/15/23 Hospital Course Operations None Procedures None Summary of Care Provided Minutes Spent on Discharge: 31 Hospital Course: This 57-year-old white male was seen in the emergency room at [facility] with chief complaint nausea and vomiting over 5 days. Patient is a type I diabetic. He related that his blood sugars have been high on his glucometer for the last several days. Workup in the emergency room revealed the patient CBC to be unremarkable, creatinine was elevated at 1.63 and BUN was 31. Patient's glucose was 358, anion gap was elevated at 20. Patient was admitted to ICU for diabetic ketoacidosis and cute kidney injury, he was placed on IV fluids and IV insulin, his nausea and vomiting resolved and his blood sugars improved. Patient's respiratory panel was positive for human metapneumovirus, he did not require oxygen during his hospital stay. Etiology of the nausea and vomiting was felt to be due to viral gastroenteritis from an unknown source. On 08/16/2023, patient was seen and examined: On examination he appeared in good health and spirits. Vital signs as documented. Skin warm and dry and without overt rashes. Neck without JVD, neck was supple, trachea midline, thyroid was normal. Lungs clear bilaterally, normal air movement was noted. Heart exam notable for regular rhythm, normal sounds and absence of murmurs, rubs or gallops. Abdomen unremarkable and without evidence of organomegaly, masses, or abdominal aortic enlargement. Bowel sounds are present, abdomen is not distended. Extremities nonedematous, no cyanosis was noted, no clubbing was noted. Neuro: Cranial nerves II through XII are grossly intact, no focal motor deficits were noted, sensation to light touch and pinprick intact, motor exam 5/5 throughout. Psych: Patient is alert and oriented x3, he does not appear anxious or depressed, he does not appear agitated. Patient was discharged home in stable condition on 08/16/2023. Medical Records Data Medical Nutrition Assessment Dietitian: Malnutrition Criteria Met Start: 08/16/23 10:19 Freq: Status: Active Protocol: Document 08/16/23 10:19 AG (Rec: 08/16/23 10:19 AG [id number]) Nutrition Malnutrition Evidence of Malnutrition Exists Yes Malnutrition (severe): Acute Illness/Injury Evidenced By Suboptimal Energy Intake ( Severe),Weight Loss (Severe) Clinical Problem Acute Disease or Injury Related Malnutrition Etiology severe acute malnutrition related to inadequate energy intake during acute illness Signs/Symptoms as evidenced by unintentional 4% wt loss x 5 days, estimated PO intake meeting <50% of estimated energy needs x 5 days 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 Weight / BMI Weight Weight: 77.5 kg Body Mass Index (BMI) 23.9 ABG / Lab / Microbiology Data 08/16/23 03:45 08/16/23 03:45 Laboratory: Laboratory Results - last 24 hr 08/15/23 14:22: POC Glucose 148 H 08/15/23 14:50: MRSA (PCR) Negative 08/15/23 15:45: Sodium 141, Potassium 4.6, Chloride 113 H, Carbon Dioxide 20.0 L, Anion Gap 8, BUN 27 H, Creatinine 1.35 H, Estim Creat Clear Calc 62.75, Est GFR (MDRD) Af Amer 69, Est GFR (MDRD) Non-Af 57 L, BUN/Creatinine Ratio 20.0, Glucose 125 H, Hemoglobin A1c 10.2 H, Lactic Acid 2.0, Calcium 8.7, Phosphorus 1.6 L, Magnesium 2.4, Troponin I High Sens 11 08/15/23 15:46: POC Glucose 114 H 08/15/23 16:34: POC Glucose 110 H 08/15/23 17:28: POC Glucose 161 H 08/15/23 17:50: Troponin I High Sens 10 08/15/23 18:33: POC Glucose 115 H 08/15/23 19:30: POC Glucose 94 08/15/23 20:27: POC Glucose 71 L 08/15/23 20:30: Sodium 142, Potassium 3.3 L, Chloride 114 H, Carbon Dioxide 22.0, Anion Gap 6, BUN 19 H, Creatinine 1.09, Estim Creat Clear Calc 77.72, Est GFR (MDRD) Af Amer 89, Est GFR (MDRD) Non-Af 73, BUN/Creatinine Ratio 17.4, Glucose 84, Calcium 8.1 L, Phosphorus 1.4 L, Magnesium 2.3, Troponin I High Sens 12 08/15/23 21:30: Acetone Level SMALL H, POC Glucose 70 L 08/15/23 22:26: POC Glucose 66 L 08/15/23 23:28: POC Glucose 109 H 08/16/23 00:37: POC Glucose 106 08/16/23 01:33: POC Glucose 86 08/16/23 02:34: POC Glucose 73 L 08/16/23 03:42: POC Glucose 125 H 08/16/23 03:45: WBC 6.8, RBC 3.90 L, Hgb 11.8 L, Hct 35.8 L, MCV 91.8, MCH 30.3, MCHC 33.0, RDW Std Deviation 40.7, RDW Coeff of Elif 12.1, Plt Count 271, MPV 9.7, Immature Gran % (Auto) 0.300, Neut % (Auto) 66.8, Lymph % (Auto) 20.4, Murray % (Auto) 10.9 H, Eos % (Auto) 1.3, Baso % (Auto) 0.3, Absolute Neuts (auto) 4.6, Absolute Lymphs (auto) 1.39, Nucleated RBC % 0, Atypical Lymphocytes 1+, Sodium 142, Potassium 3.8, Chloride 113 H, Carbon Dioxide 22.0, Anion Gap 7, BUN 15, Creatinine 0.97, Estim Creat Clear Calc 87.33, Est GFR (MDRD) Af Amer 102, Est GFR (MDRD) Non-Af 84, BUN/Creatinine Ratio 15.4, Glucose 151 H, Calcium 7.9 L, Phosphorus 1.5 L 08/16/23 03:45: Phosphorus 1.5 L, Magnesium 2.1 08/16/23 03:45: Magnesium 2.2, TSH 0.27 L, Acetone Level SMALL H 08/16/23 04:33: POC Glucose 185 H 08/16/23 05:34: POC Glucose 151 H 08/16/23 06:33: POC Glucose 118 H 08/16/23 08:20: POC Glucose 74 08/16/23 11:31: POC Glucose 330 H Microbiology: Microbiology 08/15/23 14:50 Sputum, Expectorated/Coughed Gram Stain - Final 08/15/23 14:50 Sputum, Expectorated/Coughed Respiratory Culture - Preliminary Appears to be normal respiratory junie. Further studies to follow. 08/16/23 08:21 Stool Enteric Bacteriology - Final 08/16/23 08:21 Stool Clostridioides difficile (PCR) - Final 08/15/23 15:05 Mucosa - Nasopharyngeal Respiratory Panel (PCR) - Final Human [place] 08/15/23 15:50 Urine, Clean Catch Legionella Antigen - Final 08/15/23 15:50 Urine, Clean Catch Streptococcus pneumoniae Antigen (M - Final 08/15/23 15:05 Mucosa - Nose SARS-CoV-2, Influenza & RSV (PCR) - Final D/C Instructions Discharge Diet: - (Resume previous diet) Weight Bearing Status: Full weight bearing Meaningful Use Info Meaningful Use Diagnoses (Choose all that apply): None applicable Discharge Plan Admission Admit Date/Time: 08/15/23 11:45 Primary Reason for Your Visit: Diabetic ketoacidosis Attending Provider: Cayetano Nur Primary Care Provider: Care Physician,No Primary Consulting Providers: Roxi Olivo Discharge Orders/Prescriptions Prescriptions: Continued aspirin 81 MG tablet,chewable 81 mg PO DAILY@0800 insulin glargine [Lantus Solostar U-100 Insulin] 100 unit/mL (3 mL) insulin pen 15 unit subcut QHS insulin lispro [Humalog KwikPen Insulin] 100 unit/mL insulin pen See Protocol SC TID MDD 80 Protocol: 6. Sliding Scale Insulin Custom Condition: CARBS Dose/Route: Number of Units Condition: 3 Dose/Route: 1 Condition: ETC Dose/Route: ETC Protocol Text: Custom Sliding Scale PT TAKES 1 UNIT FOR EVERY 3 CARBS THREE TIMES A DAY Rx Instructions: PT TAKES 1 UNIT FOR EVERY 3 CARBS THREE TIMES A DAY cholecalciferol (vitamin D3) 1,250 mcg (50,000 unit) capsule 1,250 mcg PO MO levothyroxine 150 mcg tablet 150 mcg PO DAILY Qty: 90 0RF Discontinued amoxicillin-pot clavulanate 875-125 mg tablet 1 tab PO BID Qty: 20 0RF Referrals / Follow Up: Nithin Mcfarlane MD [Med Staff - Courtesy Staff] - Within 1 Month Aspen Scott [Non-Staff] - See Referral Note (Call clinic to establish yourself as a new patient for primary care) Care Physician,No Primary [Primary Care Provider] - Disposition Disposition (needs filled in before D/C Order can be placed): Home, Self Care Charges/Coding Visit Charges Inpatient E&M: 14725 Disch Hosp >30min
[2023-08-16 17:01] LABS: Bedside Glucose 443 mg/dL (74-106)
== END 2023-08-16 17:05 | disposition home or self-care (01) | DRG 637 ==
LOC: ED 11:47 → ICU 12:34
PROVIDERS: Internal Medicine; Admitting Provider Internal Medicine; Emergency Provider Emergency Medicine; Visit Provider Internal Medicine
DX: E10.10 Type 1 diabetes mellitus with ketoacidosis without coma (principal); E43 Unspecified severe protein-calorie malnutrition; N17.9 Acute kidney failure, unspecified; J21.1 Acute bronchiolitis due to human metapneumovirus; Z79.4 Long term (current) use of insulin; I10 Essential (primary) hypertension; E03.9 Hypothyroidism, unspecified; A08.4 Viral intestinal infection, unspecified; Z68.23 Body mass index [BMI] 23.0-23.9, adult; Z79.82 Long term (current) use of aspirin; Z79.899 Other long term (current) drug therapy; Z23 Encounter for immunization
CPT/HCPCS: 36415; 71250; 74176; 80048; 80053; 81001; 82009; 82803; 82962; 83036; 83605; 83690; 83735; 84100; 84443; 84484; 85025; 85610; 85730; 87040; 87070; 87205; 87449; 87493; 87506; 87631; 87633; 87641; 93005; 94668; 97802; 99285; J7030; J7050; 90686; A4216; J0295; J2405; J7799

== ENCOUNTER → 2024-08-11 | Outpatient (CLI) | payer OTHER, SELFPAY | END | disposition home or self-care (01) | LOC: BIMLAB 12:12 | PROVIDERS: Referring Provider Nurse Practitioner Family; Visit Provider Nurse Practitioner Family | DX: E03.8 Other specified hypothyroidism (principal); E06.3 Autoimmune thyroiditis | CPT/HCPCS: 36415; 84439; 84443 ==